=== PATIENT | male | born 1955 | race Caucasian/White ===

== ENCOUNTER 2020-10-31 08:31 | Outpatient (CLI) | payer OTHER, SELFPAY ==
[2020-10-31 09:16] LABS: Alanine Aminotransferase 30 U/L (4-50); Albumin Level 4.1 g/dL (3.5-5.1); Alkaline Phosphatase 142 U/L (38-126); Anion Gap 8 mmol/L (8-16); Aspartate Amino Transferase 31 U/L (17-59); Bilirubin,Total 0.5 mg/dL (0.2-1.3); Blood Urea Nitrogen 12 mg/dL (9-20); Calcium 9.2 mg/dL (8.4-10.2); Carbon Dioxide 24 mmol/L (22-30); Chloride 107 mmol/L (98-107); Cholesterol 123 mg/dL (0-200); Creatine Kinase 82 U/L (55-170); Estimated Glomerular Filt Rate > 60; Glucose 230 mg/dL (75-110); HDL Direct 32 mg/dL; Potassium 4.2 mmol/L (3.4-5.0); Sodium 139 mmol/L (137-145); Triglycerides 103 mg/dL (<150); Uric Acid 4.3 mg/dL (3.5-8.5)
[2020-10-31 09:27] LABS: LDL Cholesterol Direct 72 mg/dL
[2020-10-31 09:48] LABS: Prostate Specific Antigen 0.4 ng/mL (< OR = 4.0); Vitamin D 25 Hydroxy 25.2 ng/mL
[2020-10-31 11:10] LABS: Hepatitis C Virus Antibody Negative (Negative)
== END 2020-10-31 08:32 | disposition home or self-care (01) ==
PROVIDERS: PCP Nurse Practitioner Family; Visit Provider Nurse Practitioner Family
DX: F41.9 Anxiety disorder, unspecified (principal); E11.65 Type 2 diabetes mellitus with hyperglycemia; Z87.891 Personal history of nicotine dependence; Z12.5 Encounter for screening for malignant neoplasm of prostate; Z11.59 Encounter for screening for other viral diseases
CPT/HCPCS: 36415; 80053; 80061; 82306; 82550; 82607; 82746; 84153; 84443; 84550; 86803; G0103

== ENCOUNTER → 2022-04-01 09:00 | Outpatient (CLI) | payer OTHER, SELFPAY ==
--- NOTE | ~2022-04-01 | US_ITS ---
EXAMINATION: US aorta [facility] DATE: 04/01/2022 09:26 INDICATION: Abdominal aortic aneurysm screening TECHNIQUE: Grayscale, color Doppler, and pulsed Doppler images of the aorta and common iliac arteries were obtained. COMPARISON: None. FINDINGS: The proximal aorta measures 2.9 cm. The mid aorta measures 2.3 cm. The distal aorta measures 2.2 cm. The right common iliac artery measures 1.3 cm. The left common iliac artery measures 1.1 cm. IMPRESSION: 1. Normal caliber abdominal aorta. Reviewed, dictated and finalized at location A.
== END ==
PROVIDERS: PCP Nurse Practitioner Family; Visit Provider Nurse Practitioner Family
DX: Z13.6 Encounter for screening for cardiovascular disorders (principal)
CPT/HCPCS: 76706

== ENCOUNTER 2022-04-10 09:47 | Outpatient (CLI) | payer OTHER, SELFPAY ==
--- NOTE | ~2022-04-10 | CT_ITS ---
EXAMINATION: CT lung screening DATE: 04/10/2022 10:08 INDICATION: Former smoker TECHNIQUE: Computed tomography (CT) of the chest was performed without intravenous contrast. The dose -length product was 306.96 mGy-cm. Automated exposure control and iterative reconstruction technique were employed. COMPARISON: None FINDINGS: No thoracic lymphadenopathy. No significant pleural or pericardial effusion. Heart size is normal. Fatty infiltration of the liver. No endobronchial lesions. No pneumothorax. No peripheral con solidation. There is a 4 mm right upper lobe nodule, image 36. No other pulmonary nodules or masses. Moderate thoracic spondylosis. No focal lytic or blastic lesions. IMPRESSION: 1. Lung-RADS category 2: Benign appearance or behavior. Continue annual screening with noncontrast lo w-dose chest CT in 12 months. Reviewed, dictated and finalized at location B. IMPRESSION: 1. Lung-RADS category 2: Benign appearance or behavior. Continue annual screeni ng with noncontrast low-dose chest CT in 12 months.
== END 2022-04-10 09:48 | disposition home or self-care (01) ==
PROVIDERS: PCP Nurse Practitioner Family; Visit Provider Nurse Practitioner Family
DX: F17.211 Nicotine dependence, cigarettes, in remission (principal)
CPT/HCPCS: 71271

== ENCOUNTER 2025-06-11 11:12 | Inpatient (IN) | payer MEDICARE, MEDICAID, SELFPAY ==
--- OUTSIDE RECORDS SUMMARY | 2017-08-19 01:33 | XMS_ITS | Continuity of Care Document ---
Author Organization [facility] Address [address] [place] [address] Phone Care Team Providers Care Grab Jack Man Name Role Phone Peggy OTR/L, Hong ROSALES Unavailable Unava ilable Procedures Procedure Date Long Arm Splint wrist included Advance Directives Directive Yes / No Effective Date File Name No Information Encounters Encounter Description Practice Location Reason(s) For Visit Diagnoses Date Provider Providers Copied on Encounter [facility], [address] [address], [place], [place], [id number], tel:[phone] Marielle Campbell No Information Peggy Pitts. . [facility], [address] [place], [place] [address], [place], [place], [id number], tel:[phone] Marielle Campbell Lesion of ulnar nerve, left upper limb Peggy Pitts. . Referring Provider: David Morales, [address] [place] [address] 6A/6B/12A, [place], [address]. tel:[phone] Family History Family Member Type Diagnosis Age At Onset No Information Payers Payer name Insurance type Covered democrat ID Authoriza tion(s) Self Pay Full Charges 09 00 Social History Type Description Quantity Date Captured Comments Sex Male Smoking Status No Information Chief Complaint And Reason For Visit No Information Reason For Referral Reason For Referral No Information History Of Present Illness Encounter Date Complaint History Of Prese nt Illness No Information Functional Status Date Functional Assessmen t No Information Instructions Date Instruction Additional Infor mation No Information Assessments Type Assessment Date No Information Patient Care Teams Name Effective Dates (start - stop) Status Members No Information
--- OUTSIDE RECORDS SUMMARY | 2025-05-27 18:00 | XMS_ITS | Continuity of Care Document ---
Author Organization [facility] Address [address] [place] [phone] Phone Care Team Providers Care Radiology Ct Technologist Name Role Phone Kolby TEJADA, FACC, ALISHA, Chalo Unavailable U navailable Procedures Procedure Date INITIAL HOSPITAL CARE SUBSEQUENT HOSPITAL CARE SUBSEQUENT HOSPITAL CARE Advance Directives Directive Yes / No Effective Date File Name No Information Encounters Encounter Description Practice Location Reason(s) For Visit Diagnoses Date Provider Providers Copied on Encounter INITIAL HOSPITAL CARE [facility], [address] [place] [address], [id number] , tel: [phone] [facility] Inpt Chest pain, unspecifiedEssential (primary) hypertensionAbnormal levels of other serum enzymes 5 Kolby Isabel. [address] [place] [address], [id number] , . tel: [phone] Referring Provider: Chalo Jarrett, [address] [place], [place] [address], [address] . tel:[phone] SUBSEQUENT HOSPITAL CARE [facility], [address] [place] [address], [id number] , tel: [phone] [facility] Inpt Chest pain, unspecifiedEssential (primary) hypertensionAbnormal levels of other serum enzymes 5 Vazquez Almanza. [address] [place] [address], [id number] , . tel: [phone] Referring Provider: Cami Shukla, [address], [place], [address] . tel:[phone] Family History Family Member Type Diagnosis Age At Onset No Information Payers Payer name Insurance type Covered constitution party ID Authoriza tiliborio(s) HU[employer]NA [id number] [employer] MEDICAID [id number] Social History Type Description Quantity Date Captured [...]
--- OUTSIDE RECORDS SUMMARY | 2025-05-27 18:00 | XMS_ITS | Continuity of Care Document ---
Author Organization [facility] Address [address] [place] [phone] Phone Care Team Providers Care Tint Layer Name Role Phone Kolby TEJADA, FACC, ALISHA, Chalo Unavailable U navailable Procedures Procedure Date INITIAL HOSPITAL CARE SUBSEQUENT HOSPITAL CARE SUBSEQUENT HOSPITAL CARE Advance Directives Directive Yes / No Effective Date File Name No Information Encounters Encounter Description Practice Location Reason(s) For Visit Diagnoses Date Provider Providers Copied on Encounter INITIAL HOSPITAL CARE [facility], [address] [place] [address], [id number] , tel: [phone] [facility] Inpt Chest pain, unspecifiedEssential (primary) hypertensionAbnormal levels of other serum enzymes 5 Kolby Isabel. [address] [place] [address], [id number] , . tel: [phone] Referring Provider: Chalo Jarrett, [address] [place], [place] [address], [address] . tel:[phone] SUBSEQUENT HOSPITAL CARE [facility], [address] [place] [address], [id number] , tel: [phone] [facility] Inpt Chest pain, unspecifiedEssential (primary) hypertensionAbnormal levels of other serum enzymes 5 Vazquez Almanza. [address] [place] [address], [id number] , . tel: [phone] Referring Provider: Cami Shukla, [address], [place], [address] . tel:[phone] Family History Family Member Type Diagnosis Age At Onset No Information Payers Payer name Insurance type Covered green party ID Authoriza tiliborio(s) HUMANA [id number] [employer] MEDICAID [id number] Social History Type Description Quantity Date Captured [...]
[2025-06-11] VITALS (13 sets, daily range): BP systolic 121–154; BP diastolic 55–93; PULSE 59–74; RESP 14–20; TEMP 36.4–36.7; O2SAT 98–100; BMI 32.7
--- NOTE | ~2025-06-11 | XR_ITS ---
Examination: XR chest 2V Clinical History: cp Comparison: None Technique: PA and Lateral Findings: Cardiomediastinal silhouette normal size and configuration. Lungs clear. No acute bony abnormality. IMPRESSION: 1. No acute cardiopulmonary findings. Reviewed, dictated and finalized at location R. ATIENT PSYCHIATRIST
--- NOTE | 2025-06-11 11:14 | ECG_ITS ---
Test Date: 2025-06-11 11:26:30 Measurements Intervals [place] Rate: 66 P: 62 ID: [id number] QRS: -1 QRSD: 109 T: 28 QT: 389 QTc: 410 Interpretive Statements SINUS RHYTHM INCOMPLETE RIGHT BUNDLE BRANCH BLOCK BASELINE ARTIFACT- I, II, III, AVR, AVL BORDERLINE ECG No previous ECG available for comparison Electronically Signed On 06-11-2025 21:33:45 FLYING SHEAR OPERATOR by Shaun Willard D.O.
--- OUTSIDE RECORDS SUMMARY | 2025-06-11 11:14 | XMS_ITS | Clinical Summary ---
Author Organization [facility] Address [address] [place] [address] Care Team Providers Care Mule Developer Name Role Phone Lashaun Herron TIFFANIE Primary Care Provider [phone] Allergies No known active allergies Medications albuterol (2.5 MG/3ML) 0.083% nebulizer solution Inhale into the lungs 2 (two) times daily. Active albuterol sulfate HFA (PROAIR HFA) 108 (90 Base) MCG/ACT inhalerIndications :Simple chronic bronchitis ([facility] HHS/HCC) Inhale 2 puffs into the lungs every 4 (four) hours as needed for Wheezing. 18 g 10/31/19 Active aspirin EC (ASPIRIN 81) 81 MG tabletIndications: Essential hypertension Take 1 tablet (81 mg total) by mouth daily. 30 tablet 10/31/19 Active Lancets MiscIndications:Un controlled type 2 diabetes mellitus with hyperglycemia ([facility] HHS/HCC) Use for checking blood sugar 100 each 12/01/19 Active metFORMIN 1000 MG tabletIndications: Type 2 diabetes mellitus without complication, without long-term current use of insulin ([facility] HHS/HCC) Take 1 tablet (1,000 mg total) by mouth 2 (two) times daily with meals. 60 tablet 01/04/20 Active Blood Glucose Monitoring Suppl (ONE TOUCH ULTRA 2) w/Device KitIndications:Unc ontrolled type 2 diabetes mellitus with hyperglycemia ([facility] HHS/HCC) Check blood sugars a couple times a week, as directed 1 kit 01/04/20 Active Glucose Blood (ONETOUCH VERIO) test stripIndications:U ncontrolled type 2 diabetes mellitus with hyperglycemia ([facility] HHS/[facility]) Use to test blood glucose daily for diabetes 100 strip 5 12/25/19 22 Active simvastatin (ZOCOR) 20 MG tabletIndications: Hyperlipidemia, unspecified hyperlipidemia type TAKE 1 TABLET BY MOUTH EVERY DAY 90 tablet 10/11/19 23 Active Additional Information Patient not taking.Reported on 01/10/2025 Insulin Pen Needle (BD PEN NEEDLE MICRO U/F) 32G X 6 MM MiscIndications:Un controlled type 2 diabetes mellitus with hyperglycemia ([facility] H[facility]),Class 2 severe obesity due to excess calories with serious comorbidity and body mass index (BMI) of 35.0 to 35.9 in adult Use weekly with ozempic 100 each 1 04/08/20 23 Active vitamin D3, cholecalciferol, 1.25 mg capsuleIndications :Vitamin D deficiency Take 1 capsule (50,000 Units total) by mouth once a week. 12 capsule 3 04/08/20 23 Active budesonide-formote rol (SYMBICORT) 80-4.5 MCG/ACT inhaler Inhale 2 puffs into the lungs 2 (two) times daily. Active tirzepatide (MOUNJARO) 7.5 MG/0.5ML injectionIndicatio ns:Diabetes Mellitus Inject 7.5 mg into the skin every 7 days. Indications: Diabetes 6 mL 01/11/20 25 Active cyclobenzaprine (FLEXERIL) 10 MG tabletIndications: Muscle spasm TAKE 1 TABLET BY MOUTH TWICE A DAY NEEDED FOR MUSCLE SPASMS 60 tablet 03/24/20 25 Active ALPRAZolam (XANAX) 2 MG tabletIndications: Anxiety Take 1 tablet (2 mg total) by mouth nightly as needed (anxiety). 30 tablet 2 04/05/20 25 Active lisinopril (PRINIVIL) 20 MG tabletIndications: Primary hypertension TAKE 1 TABLET BY MOUTH EVERY DAY 30 tablet 11 04/05/20 25 Active HYDROcodone-acetam inophen (NORCO) 7.5-325 MG tabletIndications: Chronic Pain Take 1 tablet by mouth every 6 (six) hours as needed for Pain. Indications: Chronic Pain 120 tablet 06/05/20 25 Active HYDROcodone-acetam inophen (NORCO) 7.5-325 MG tabletIndications: Chronic Pain Take 1 tablet by mouth every 6 (six) hours as needed for Pain. Indications: Chronic Pain 120 tablet 05/09/20 25 025 Discontin ued(Reord er) Active Problems Problem Noted Date Diagnosed Date Non-compliance with treatment 11/26/2024 H/O cervical discectomy 08/26/2023 Numbness and tingling 08/26/2023 Nicotine dependence, cigarettes, in remission Left lower quadrant abdominal mass 04/08/2023 Muscle spasm 03/07/2023 Polyarthralgia 03/07/2023 Class 2 severe obesity due t o excess calories with serious comorbidity and body mass index (BMI) of 36.0 to 36.9 in adult 07/19/2022 Fatty liver disease, nonalcoholic 11/01/2020 Primary hypertension 11/01/2020 Hyperlipidemia, unspecified hyperlipidemia type 11/01/2020 Vitamin D deficiency 11/01/2020 Uncontrolled type 2 diabetes mellitus with hyper glycemia 11/01/2020 Personal history of nicotine dependence 11/02/19 21 Brachial neuritis 10/30/2020 Localized, primary osteoarthritis 10/30/2020 Cervical myelopathy 11/06/2018 Overview (10/30/2020): Last Assessment & Plan: Condition: worsening Follow up in: two weeks Pain 11/06/2018 Overview (10/30/2020): Last Assessment & Plan: Condition: stable Follow up in: one month Carpal tunnel syndrome 07/22/2017 Cubital tunnel syndrome 05/28/2017 Anxiety 08/14/2016 Renal cyst, right 06/06/2015 Allergic rhinitis 04/12/2015 Type 2 diabetes mellitus 07/04/2014 Arthritis 06/29/2014 Chronic obstructive pulmonary disease, unspecifi ed 06/29/2014 Resolved Problems Problem Noted Date Diagnosed Date Resolved Date Colon cancer screening 11/01/202011/06 Current tear of medial carti griffin or meniscus of knee 10/30/2020 11/01/2020 Osteoarthritis of knee 10/30/202011/01 ADHD (attention deficit hype ractivity disorder), combined type 04/12/2015 11/01/2020 Encounters Date Type Department Care Team Description 06/03/[address] [phone] Lashaun Herron, [facility] Medication Request 05/27/2025 Scan [facility] Scanned, [facility] 05/09/[address] [phone] Lashaun Herron, [facility] Medication Request 04/27/2025 Scan [facility] Scanned, [facility] 04/24/2025 Scan [facility] Scanned, [facility] 04/07/[address] [phone] Lashaun Herron, [facility] Medication Request 04/05/[address] [phone] Lashaun Herron, [facility] Medication Request 04/04/2025 Patient Outreach [address] [phone] Maria Isabel, Alton Shaw MA Other ([employer]) 03/15/2025 Scan [facility] Scanned, [facility] from Last 3 Months Immunizations Immunization Administration Dates Next Due Fluzone High Dose (IIV, trivalent, 0.5mL) 2024,05/07/2024 Fluzone High Dose - >Age 65 (Prefilled Syringe) 04/08/2023 PFIZER COVID-19 (12+) MRNA, LNP-S, PF, JESSICA-SUCROSE, 30 MCG/0.3 ML (COMIRNATY) 08/13/2024,05/07/2024 Pneumococcal (Prevnar 20) 03/15/2022 Shingrix 12/15/2020 Tdap (Adacel) 07/19/2022 Family History Medical History Relation Comments None Daughter Arthritis Father Cancer Father abdominal cancer Arthritis Mother Cancer Mother breast Arthritis Sister 1 Arthritis Sister 2 Relation Status Comments Daughter Alive Father Mother Sister 1 Alive Sister 2 Alive Social History Tobacco Use Types Packs/Day Years Used Date Smoking Tobacco: Former Cigarettes 1.5 50 0 10/30/1966 - 10/30/2016 Smokeless Tobacco: Never Tobacco Cessation:Counseling Given: Yes Alcohol Use Standard Drinks/Week Comments Not Currently 0 (1 standard drink = 0.6 oz pur e alcohol) PHQ-2 Answer Date Recorded Patient Health Questionnaire-2 Score 0 11/26/2024 Sex and Gender Information Value Date Recorded Sex Assigned at Male 09/24/2024 10:28 AM CDT Legal Sex Male 10:56 PM CDT Gender Identity Male 09/24/2024 10:28 AM CDT Sexual Orientation Not on file Last Filed Vital Signs Vital Sign Reading Time Taken Comments Blood Pressure 118/64 01/10/2025 8:34 AM CDT Pulse 81 01/10/2025 8:34 AM CDT Temperature 36.5 C (97.7 F) 01/10/2025 8:34 AM CDT Respiratory Rate 16 01/10/2025 8:34 AM CDT Oxygen Saturation 97% 01/10/2025 8:34 AM CDT Inhaled Oxygen Concentration - - Weight 124.7 kg (274 lb 14.4 oz) 01/10/2025 8:34 AM CDT Height 185.4 cm (6' 1) 01/10/2025 8:34 AM CDT Body Mass Index 36.27 01/10/2025 8:34 AM CDT Plan of Treatment Health Maintenance Due Date Last Done Comments Diabetes: Retinopathy Eye Exam 1975 Hepatitis A Vaccines (1 of 2 - Risk 2-dose series) 01/24/1976 AAA SCREENING 2022 COVID-19 Vaccine ( season) 2025 08/13/2024, 05/07/2024 Influenza Adult (#1) 2025 08/13/2024, 05/07/2024, 04/08/2023 Hemoglobin A1C 07/13/2025 01/10/2025, 11/14, 10/26/2024, Additional history exists Lung Cancer Screening 09/24/2025 Postpo page from 2007 (Patient Refused) RSV Immunization or 60+ Years (1 - Risk 60-74 years 1-dose series) 09/24/2025 Postponed fro m 2017 (Going to Outside Clinic) Annual Medicare Wellness Visit 10/26/2025 Postponed from 2022 (Patient Refused) Colorectal Cancer Screening Colonoscopy (10 Years) 10/26/2025 Postponed from 1957 (Patient Refused) Zoster Vaccines (2 of 2) 10/26/2025 12/15/2020 Pos tponed from 02/09/2021 (Going to Outside Clinic) Kidney Health Evaluation 01/10/2026 01/10/2025 Lipid Panel 01/10/2026 01/10/2025, 04/17, 04/01/2023, Additional history exists DTaP, Tdap and Td Vaccines (2 - Td or Tdap) 07/19/2032 07/19/2022 Pneumococcal Vaccine: 50+ Years Completed 03/15/2022 Hepatitis C Completed 05/07/2024, 08/31/2018 PHQ-2 (Physician [place]) Completed 11/26/2024 Meningococcal B Vaccine Aged Out No l onger eligible based on patient's age to complete this topic Meningococcal Vaccine Aged Out No douglas nesha eligible based on patient's age to complete this topic RSV Immunizations Under 20 Months Aged Out No longer eligible based on patient's age to complete this topic Procedures Procedure Name Priority Date/Time Associated Diagnosis Comments LIPID PANEL Routine 01/10/2025 10:56 AM CDT Uncontrolled type 2 diabetes mellitus with hyperglycemia ([facility]) Hyperlipidemia, unspecified hyperlipidemia type HEMOGLOBIN GLYCOSYLATED A1C Routine 01/10/2025 10:56 AM CDT Uncontrolled type 2 diabetes mellitus with hyperglycemia ([facility] HHS/HCC) Anxiety HEPATITIS C ANTIBODY Routine 05/07/2024 11:42 AM MEDIA ASSISTANT Encounter for hepatitis C screening test for low risk patient COLONOSCOPY Routine MEDIA ASSISTANT from Last 3 Months or Most Recently Relevant to Health Maintenance Results * (ABNORMAL) HEMOGLOBIN, GLYCOSYLATED (01/10/2025 10:56 AM CDT) HGB A1C 8.2(H) 4.5 - 6.2 % 01/10/2025 3:28 PM CDT [facility] ESTIMATED AVG GLUCOSE 189(H) 74 - 106 MG/DL 01/10/2025 3:28 PM CDT [facility] 01/10/2025 10:5 6 AM CDT us Lashaun Herron [facility] Final Result [facility] [address] [place] [address], * (ABNORMAL) LIPID PANEL (01/10/2025 10:56 AM CDT) CHOLESTEROL 139 <200 MG/DL 01/10/2025 4:05 PM CDT [facility] TRIGLYCERIDES 106 <150 MG/DL 01/10/2025 4:05 PM CDT [facility] HDL 36(L) >40 MG/DL 01/10/2025 4:05 PM CDT [facility] LDL-C 82 <100 MG/DL 01/10/2025 4:05 PM CDT [facility] VLDL CALCULATION 21 5 - 28 MG/DL 01/10/2025 4:05 PM CDT [facility] CHOL/HDL RATIO 3.9 0.0 - 4.0 01/10/2025 4:05 PM T [facility] LDL/HDL 2.3(H) 0.41 - 2.13 01/10/2025 4:05 PM CDT [facility] NON HDL CHOLESTEROL 103 <140 MG/DL 01/10/2025 4:05 PM CDT [facility] 01/10/2025 10:5 6 AM CDT Lashaun Herron [facility] Final Result Performing Organization Address City/[facility] de Phone Number -[facility] [address] [place] [address], [place] [phone] * HEPATITIS C ANTIBODY ([facility] ONLY) (05/07/2024 11:42 AM MEDIA ASSISTANT) HEPATITIS C AB NON-REACTI VE NON-REACT ATIF 05/07/2024 6:30 PM MEDIA ASSISTANT [facility] Comment: ANTIBODIES TO HCV NOT DETECTED. DOES NOT EXCLUDE THE POSSIBILITY OF EXPOSURE TO HCV. 05/07/2024 11:4 2 AM MEDIA ASSISTANT Lashaun Herron [facility] Final Result Performing Organization Address [facility] de Phone Number [facility] [address] [place] [address], [place] [phone] * Colonoscopy ( MEDIA ASSISTANT) Narrative [facility] TO EPIC CONVERSION - MEDIA ASSISTANT Documented hx of procedure Procedure Note Cesar Tejada MD - 04/19/2018 Documented hx of procedure us Generic Conversion Md TEJADA GI PROCEDURE ORDERABLES Final Result Performing Organization Address City/[facility] Co de Phone Number [facility] TO EPIC CONVERSION from Last 3 Months or Most Recently Relevant to Health Maintenance Insurance MEDICARE MEDICAID Care Teams Mule Developer Relationship Specialty Start Date End Date Lashaun Herron FNP [address] [place] [id number] PCP - General Nurse Practitioner Family 10/30/20
--- OUTSIDE RECORDS SUMMARY | 2025-06-11 11:14 | XMS_ITS | Clinical Summary ---
Author Organization [facility] Address [address] [place] [address] Care Team Providers Care Polisher Hand Name Role Phone Yovanny Acevedo DO Primary Care Provider [phone] Source Comments [facility],non-owned Affiliates and Associated Physician Practices is amultiple site organization consisting of ambulatory clinics and hospital sitesin [place], [place], [place]. This disclosure is being madepursuant to the Care Everywhere program and may not contain all information available regarding this patient. Last updated 18.[facility] Allergies No known active allergies Medications * Be aware that medications may not be up to date on this document. Alwaysverify current medications with the patient. VENTOLIN HFA 108 (90 BASE) MCG/ACT inhaler Inhale 2 puffs by mouth every 4 hours as needed 07/07/2018 Active Naproxen Sodium (ALEVE PO) Take by mouth 2 times daily Active cyclobenzaprine (FLEXERIL) 10 MG tablet Take 1 tablet by mouth 3 times daily 93 tablet 11/19/2018 Active Active Problems Problem Noted Date Diagnosed Date Pre-op testing 11/19/2018 Family History Medical History Relation Name Comments Arthritis - Rheumatoid Mother Relation Name Status Comments Father Mother Alive Social History Tobacco Use Types Packs/Day Years Used Date Smoking Tobacco: Former Cigarettes 1 52 1 966 - 2018 Smokeless Tobacco: Never Tobacco Cessation:Counseling Given: No Alcohol Use Standard Drinks/Week Comments No 0 (1 standard drink = 0.6 oz pur e alcohol) Sex and Gender Information Value Date Recorded Sex Assigned at Not on file 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 Gender Identity Not on file Sexual Orientation Not on file Last Filed Vital Signs Vital Sign Reading Time Taken Comments Blood Pressure 154/85 03/04/2019 3:49 PM CDT Pulse 78 03/04/2019 3:49 PM CDT Temperature 36.4 C (97.6 F) 12/10/2018 2:41 PM CDT Respiratory Rate 19 11/19/2018 1:00 PM CDT Oxygen Saturation 98% 11/19/2018 1:00 PM CDT Inhaled Oxygen Concentration - - Weight 119.7 kg (264 lb) 03/04/2019 3:49 PM CDT Height 185.4 cm (6' 1) 03/04/2019 3:49 PM CDT Body Mass Index 34.83 03/04/2019 3:49 PM CDT Plan of Treatment Health Maintenance Due Date Last Done Comments COLOGUARD (AGES 45-75) - COL ON CA SCREENING 1957 COLON MONITORING 1957 COLONOSCOPY - COLON CA SCREENING 1957 CT COLONOGRAPHY - COLON CA SCREENING 1957 Colorectal Cancer Screening 1957 FIT - COLON CA SCREENING 1957 FLEX SIG - COLON CA SCREENING 1957 LIPID TESTING 1957 DTAP/TDAP/TD VACCINES (1 - Tdap) 01/24/1976 LUNG CANCER SCREENING 2007 PNEUMOCOCCAL VACCINE 50+ (1 of 1 - PCV) 2007 ZOSTER VACCINE (1 of 2) 2007 SCREENING FOR DIABETES 11/06/2021 9, 08/31/2018 AAA SCREENING 2022 DEPRESSION SCREENING 06/16/2024 COVID-19 VACCINE (1 - 2024-2 6 season) 2025 INFLUENZA VACCINE (#1) 2025 Respiratory Syncytial Virus (RSV) Vaccine Pt: or over 60 yrs (1 - 1-dose 75+ series) 01/24/2032 HEPATITIS C SCREENING Completed 08/31/2018 HEPATITIS B VACCINE Aged Out No longe r eligible based on patient's age to complete this topic HIB VACCINE Aged Out No longer eligi ble based on patient's age to complete this topic HPV VACCINE Aged Out No longer eligi ble based on patient's age to complete this topic MENINGOCOCCAL (Group B) VACCINE SHARED DECISION-MAKING Aged Out No longer eligible based on patient's age to complete this topic MENINGOCOCCAL GROUPS A/C/Y/W VACCINE Aged Out No longer eligible b ased on patient's age to complete this topic Medical Devices Implanted Type Area Finger Grip Machine Operator Device Identifier Shelf Expiration Date Model / Serial / Lot Tiss Jennifer Srvc Fee 7.0 X 14mm X 11mm Implanted:Qty: 1 on 11/19/2018 by Damion Armendariz MD at [facility] Right: Spine Medtr[employer] Sof[employer]or [employer] 08/18/2021 [id number] / / Plate 23mm 1 Lvl Ti Spne Crv Ant Zevo Implanted:Qty: 1 on 11/19/2018 by Damion Armendariz MD at [facility] Right: Spine Medtronic Sofamor [employer] Spine [id number] / / Screw 3.5mm 15mm Spne Crv Ant Shahid Slf Implanted:Qty: 4 on 11/19/2018 by Damion Armendariz MD at [facility] Right: Spine [employer]tr[employer] [id number] / / Procedures Procedure Name Priority Date/Time Associated Diagnosis Comments BASIC METABOLIC PANEL (CALCIUM TOTAL) Routine 11/06/2018 11:14 AM CDT Pre-op testing HEPATITIS C AB SCREEN RFLX NAAT QUANT STAT 08/31/2018 5:05 PM CDT from Last 3 Months or Most Recently Relevant to Health Maintenance Results * (ABNORMAL) BASIC METABOLIC PANEL (CALCIUM TOTAL) (11/06/2018 11:14 AM CDT) BUN 16 7 - 26 mg/dL 11/06/2018 11:49 AM CDT [facility] Creatinine 1.0 0.6 - 1.2 mg/dL 11/06/2018 11:49 AM CDT [facility] Sodium 139 136 - 145 mmol/L 11/06/2018 11:49 AM CDT [facility] Potassium 4.0 3.5 - 4.5 mmol/L 11/06/2018 11:49 AM CDT [facility] Chloride 105 98 - 107 mmol/L 11/06/2018 11:49 AM [facility] CO2 24 22 - 29 mmol/L 11/06/2018 11:49 AM [facility] Glucose 121(H) 70 - 115 mg/dL 11/06/2018 11:49 AM [facility] Calcium 10.0 8.4 - 10.2 mg/dL 11/06/2018 11:49 AM [facility] Anion Gap 14 8 - 18 11/06/2018 11:49 AM [facility] BUN/Creatinine Ratio 16 7 - 23 11/06/2018 11:49 AM [facility] Osmolality Calculated 290 270 - 300 mOsm/kg 11/06/2018 11:49 AM [facility] eGFR >60 >60 mL/min/1.7 3 m2 11/06/2018 11:49 AM [facility] Blood BLOOD SPECIMEN / Unknown Lab Venipuncture / Unknown 11/06/2018 11:14 AM CDT 11/06/2018 11:28 AM CDT us Felicia Fonseca MD LAB - CHEMISTRY ORDERABLES Sonia l Result [address] [phone] * HEPATITIS C AB SCREEN RFLX NAAT QUANT (08/31/2018 5:05 PM CDT) Hepatitis C Antibody Non-react raúl Non-reac tive 08/31/2018 6:33 PM [facility] Comment: Hepatitis C Antibody screen indicates no serologic evidence of past or current infection with Hepatitis C Virus. Patients with unexplained liver disease who are immunocompromised or suspected of having acute Hepatitis C infection may benefit from Nucleic Acid Test (JOEL) for Hepatitis C Viral RNA to confirm Hepatitis C status. Blood BLOOD SPECIMEN / Unknown Venipuncture / Unknown 08/31/2018 5:05 PM CDT 08/31/2018 5:21 PM CDT Walker Sands MD LAB - CHEMISTRY ORDERABL ES Final Result [address] [place] [address], [facility] [phone] from Last 3 Months or Most Recently Relevant to Health Maintenance Insurance [facility] Care Teams Polisher Hand Relationship Specialty Start Date End Date Yovanny Acevedo DO PCP - General 10/22/18
[2025-06-11] MEDS: ASPIRIN 81 MG CHEWABLE TABLET 324 MG PO (11:51)
--- NOTE | 2025-06-11 11:53 | ED_ITS ---
HPI - Chest Pain General Chief Complaint: Chest Pain Stated Complaint: cp Time Seen by Provider: 06/11/25 11:52 Source: patient Mode of arrival: ambulatory Limitations: no limitations History of Present Illness HPI narrative: 70 years old white male driving his car, sudden onset of left chest pain radiating left upper extremity, 9.5/10 and gradually started getting better, currently 7/10. History of knee arthritis and anxiety/depression. Patient believe in a motel for the last 7 days with his significant other, can not afford renting. Patient denies smoking drinking or using drugs, strong family history of coronary artery disease, his father had it at at age 67. Patient had similar symptoms 3 weeks ago was hospitalized at [facility], operated by [facility] for 3 days, was not able to get cardiac stress test yet. Related Data Home Medications ?Medication ?Instructions ?Recorded ?Confirmed ?Last Taken ?Type albuterol sulfate 90 mcg/actuation 2 puff inhalation Q 4-6H PRN 07/28/19 06/11/25 Unknown History aerosol inhaler (Ventolin HFA) shortness of breath or wheezing alprazolam 2 mg tablet 2 mg PO HS PRN anxiety 06/1106/11/25 06/09/25 History hydrocodone 7.5 mg-acetaminophen 1 tablet PO Q6H PRN p ain 06/11/25 06/11/25 06/09/25 History 325 mg tablet Allergies Allergy/AdvReac Type Severity Reaction Status Date / Time No Known Allergies Allergy Verified 06/11/25 14:15 Review of Systems 2 Review of Systems: All systems reviewed & are unremarkable except as noted in HPI and below PMFSH Past Medical History Medical History COPD (chronic obstructive pulmonary disease) HTN (hypertension) Surgical History Surgical History History of surgery on upper extremity History of carpal tunnel release History of knee surgery left History of shoulder surgery right History of fusion of cervical spine Family History Family History (Updated 06/11/25 @ 14:24 by Honey Whatley RN) Sibling Diabetes mellitus Hypertension Father Cancer of unknown origin Acute myocardial infarction Hypertension Mother Heart disease Hypertension Acute myocardial infarction Asthma Cancer of unknown origin Sibling Hypertension Diabetes mellitus Sibling Hypertension Social History Social History Smoking packs per day: 1.5 Smoking cigarettes per day: 30.0 Years smoked: 50 Smoking pack-years: 75.00 Smoking status: Former smoker Second hand tobacco smoke exposure: Yes Smoking end date: 06/16/17 Additional smoking assessment comments: quit in 2014 Alcohol intake: never Substance use: never Substance use type: does not use Lack of Transportation: No Lack of Food: Sometimes True Current Housing: I Do Not Have Housing Concerned About Future Housing: YES Difficulty Paying Gas/Electric Bills: YES Difficulty Paying for Meds: No Currently Unemployed: No Education: Associate Degree Difficulty w/ Childcare or Family Care: No Spiritual care concerns: No Exam 2 Narrative: General appearance: Well-developed, well-nourished Skin: Normal color Head: Normocephalic, nontraumatic Eyes: Clear conjunctiva ENT: Oropharynx normal, ears normal, nose normal Neck: Supple, nontender Chest and respiratory: Airway patent, no respiratory distress, no accessory muscle use Heart: Regular rate/rhythm Abdomen: Soft, nontender, no organomegaly, quiet bowel sounds Vascular: Normal peripheral pulses, normal capillary refill. Musculoskeletal: Normal range of motion, nontender back Neurologic: Alert and oriented ?3, SURVEILLANCE MONITOR is normal as tested, no gross motor deficit Course Vital Signs Vital signs: Vital Signs Temperature 36.6 C 06/11/25 11:35 Pulse Rate 69 06/11/25 11:35 Respiratory Rate 20 06/11/25 11:35 Blood Pressure 154/93 H 06/11/25 11:35 Pulse Oximetry 99 06/11/25 11:35 Temperature 36.3 C L 06/13/25 08:00 Pulse Rate 72 06/13/25 08:00 Respiratory Rate 12 06/13/25 08:00 Blood Pressure 155/94 H 06/13/25 08:00 Pulse Oximetry 100 06/13/25 08:00 Oxygen Delivery Room Air 06/13/25 04:00 [facility] Narrative Medical decision making narrative: Patient came to the ED by private car complaining of chest pain Vital signs are stable Physical examination unremarkable Differential diagnosis include coronary artery disease, chest wall pain, anxiety like symptoms, pneumonia, pleural effusion, pleurisy Blood workup today includes CBC, CMP, lipase, troponin, BnP showed insignificant abnormality Chest x-ray showed no acute abnormality Differential Diagnosis Differential Diagnosis: Anxiety like symptoms, pneumonia, chest wall pain, pleurisy, pleural effusion, less likely coronary artery disease Lab Data 06/12/25 03:39 06/12/25 03:39 Labs: Lab Results 06/11/25 Range/Units 11:58 WBC 6.8 (4.5-10.0) K/mm3 RBC 4.62 (4.6-6.20) M/mm3 Hgb 14.2 (14.0-18.0) g/dL Hct 41.6 L (42.0-52.0) % MCV 90.0 (80-100) fl MCH 30.7 (26-34) pg MCHC 34.1 (32-36) g/dl RDW 13.2 (11.5-14.5) % Plt Count 170 (150-375) k/mm3 MPV 9.1 (7.4-10.4) fl Immature Gran % (Auto) 0.3 (0-0.5) % Neut % (Auto) 62.7 (45.5-73.1) % Lymph % (Auto) 25.3 (18.3-44.2) % Campbell % (Auto) 8.5 (2.6-8.5) % Eos % (Auto) 2.5 (0-4.4) % Baso % (Auto) 0.7 (0.2-1.2) % Lymph # (Auto) 1.73 (0.9-3.2) K/mm3 Campbell # (Auto) 0.6 (0.1-0.6) K/mm3 Eos # (Auto) 0.2 (0-0.3) K/mm3 Baso # (Auto) 0.1 (0.0-0.1) K/mm3 Abs Immat Gran (auto) 0.02 (0.00-0.031) K/mm3 Absolute Neuts (auto) 4.3 (1.3-6.7) K/mm3 Absolute Nucleated RBC 0.000 (0.0-0.012) K/mm3 Nucleated RBC % 0.0 (0.0-0.2) % PT 13.1 (11.1-14.7) Seconds INR 1.0 APTT 26.5 (22.3-36.8) Seconds Sodium 139 (137-145) mmol/L Potassium 4.2 (3.4-5.0) mmol/L Chloride 110 H (98-107) mmol/L Carbon Dioxide 25 (22-30) mmol/L Anion Gap 4 (4-12) mmol/L BUN 12 (9-20) mg/dL Creatinine 0.73 (0.7-1.3) mg/dL Estim Creat Clear Calc 111 ml/min Estimated GFR > 60 (59 - ) Glucose 196 H (65-110) mg/dL Calcium 9.0 (8.4-10.2) mg/dL Total Bilirubin 0.5 (0.2-1.3) mg/dL AST 25 (17-59) U/L ALT 21 (6-50) U/L Alkaline Phosphatase 179 H (38-126) U/L Troponin I < 0.012 (0.000-0.034) ng/mL NT-Pro-B Natriuret Pep 55 (19.9-100) pg/mL Total Protein 7.0 (6.3-8.2) g/dL Albumin 4.1 (3.5-5.1) g/dL Lipase 84 (23-300) U/L Imaging Data Radiologist's impression: ITS Impressions Chest X-Ray 06/11/25 12:49 IMPRESSION: 1. No acute cardiopulmonary findings. Discharge Plan Discharge Clinical Impression: Chest pain, Anxiety-like symptoms Patient Disposition: Still a Patient Condition: Stable
[2025-06-11 12:06] LABS: Hematocrit 41.6 % (42.0-52.0); Hemoglobin 14.2 g/dL (14.0-18.0); Immature Granulocyte Percent A 0.3 % (0-0.5); Lymphocytes Absolute Auto 1.73 K/mm3 (0.9-3.2); Mean Corpuscular HGB Conc 34.1 g/dl (32-36); Mean Corpuscular Hemoglobin 30.7 pg (26-34); Mean Corpuscular Volume 90.0 fl (80-100); Nucleated Red Blood Cells Absolute Auto 0.000 K/mm3 (0.0-0.012); Nucleated Red Blood Cells Perc 0.0 % (0.0-0.2); Platelet Count Result 170 k/mm3 (150-375); Red Blood Count 4.62 M/mm3 (4.6-6.20); White Blood Count 6.8 K/mm3 (4.5-10.0)
--- OUTSIDE RECORDS SUMMARY | 2025-06-11 12:07 | XMS_ITS | Clinical Summary ---
Author Organization [facility] Address [address] [place] [address] Care Team Providers Care Pizza Maker Name Role Phone Lashaun Herron TIFFANIE Primary Care Provider [phone] Allergies No known active allergies Medications albuterol (2.5 MG/3ML) 0.083% nebulizer solution Inhale into the lungs 2 (two) times daily. Active albuterol sulfate HFA (PROAIR HFA) 108 (90 Base) MCG/ACT inhalerIndications :Simple chronic bronchitis ([facility] HHS/HCC) Inhale 2 puffs into the lungs every 4 (four) hours as needed for Wheezing. 18 g 10/31/19 Active aspirin EC (ASPIRIN 81) 81 MG tabletIndications: Essential hypertension Take 1 tablet (81 mg total) by mouth daily. 30 tablet 10/31/19 Active Lancets MiscIndications:Un controlled type 2 diabetes mellitus with hyperglycemia ([facility] HHS/HCC) Use for checking blood sugar 100 each 12/01/19 Active metFORMIN 1000 MG tabletIndications: Type 2 diabetes mellitus without complication, without long-term current use of insulin ([facility] HHS/HCC) Take 1 tablet (1,000 mg total) by mouth 2 (two) times daily with meals. 60 tablet 01/04/20 Active Blood Glucose Monitoring Suppl (ONE TOUCH ULTRA 2) w/Device KitIndications:Unc ontrolled type 2 diabetes mellitus with hyperglycemia ([facility] HHS/HCC) Check blood sugars a couple times a week, as directed 1 kit 01/04/20 Active Glucose Blood (ONETOUCH VERIO) test stripIndications:U ncontrolled type 2 diabetes mellitus with hyperglycemia ([facility] HHS/[facility]) Use to test blood glucose daily for diabetes 100 strip 5 12/25/19 22 Active simvastatin (ZOCOR) 20 MG tabletIndications: Hyperlipidemia, unspecified hyperlipidemia type TAKE 1 TABLET BY MOUTH EVERY DAY 90 tablet 10/11/19 23 Active Additional Information Patient not taking.Reported on 01/10/2025 Insulin Pen Needle (BD PEN NEEDLE MICRO U/F) 32G X 6 MM MiscIndications:Un controlled type 2 diabetes mellitus with hyperglycemia ([facility] HHS/[facility]),Class 2 severe obesity due to excess [...] Type Department Care Team Description 06/03/[address] [phone] Lashaun Herron, [facility]OCUS P[facility]ER Medication Request 05/27/2025 Scan [facility] SRVCS Scanned, [facility] 05/09/[address] [phone] Lashaun Herron, FOCUS PULLER Medication Request 04/27/2025 Scan [facility] INFO SRVCS Scanned, [facility] 04/24/2025 Scan [facility] SRVCS Scanned, Doc [facility] 04/07/[address] [phone] Lashaun Herron, FOCUS PULLER Medication Request 04/05/[address] [phone] Lashaun Herron, FOCUS PULLER Medication Request 04/04/2025 Patient Outreach [address] [phone] Maria Isabel, Alton Shaw MA [...] Hepatitis C Completed 05/07/2024, 08/31/2018 PHQ-2 (Physician Exline) Completed 11/26/2024 Meningococcal B Vaccine Aged Out [...] Uncontrolled type 2 diabetes mellitus with hyperglycemia ([facility]) Hyperlipidemia, unspecified hyperlipidemia type HEMOGLOBIN GLYCOSYLATED A1C Routine 01/10/2025 10:56 AM CDT Uncontrolled type 2 diabetes mellitus with hyperglycemia ([facility] HHS/HCC) Anxiety HEPATITIS C ANTIBODY Routine 05/07/2024 11:42 AM APPLICATION TRAINER Encounter for hepatitis C screening test for low risk patient COLONOSCOPY Routine APPLICATION TRAINER from Last 3 Months or Most Recently Relevant to Health Maintenance Results * (ABNORMAL) HEMOGLOBIN, GLYCOSYLATED (01/10/2025 10:56 AM CDT) HGB A1C 8.2(H) 4.5 - 6.2 % 01/10/2025 3:28 PM CDT [facility] ESTIMATED AVG GLUCOSE 189(H) 74 - 106 MG/DL 01/10/2025 3:28 PM CDT [facility] 01/10/2025 10:5 6 AM CDT us Lashaun Herron [facility] Final Result [facility] [address] [place] [address], * (ABNORMAL) LIPID PANEL (01/10/2025 10:56 AM CDT) CHOLESTEROL 139 <200 MG/DL 01/10/2025 4:05 PM CDT [facility] TRIGLYCERIDES 106 <150 MG/DL 01/10/2025 4:05 PM CDT [facility] HDL 36(L) >40 MG/DL 01/10/2025 4:05 PM CDT [facility] LDL-C 82 <100 MG/DL 01/10/2025 4:05 PM CDT [facility] VLDL CALCULATION 21 5 - 28 MG/DL 01/10/2025 4:05 PM CDT [facility] CHOL/HDL RATIO 3.9 0.0 - 4.0 01/10/2025 4:05 PM T [facility] LDL/HDL 2.3(H) 0.41 - 2.13 01/10/2025 4:05 PM CDT [facility] NON HDL CHOLESTEROL 103 <140 MG/DL 01/10/2025 4:05 PM CDT [facility] 01/10/2025 10:5 6 AM CDT Lashaun Herron [facility] Final Result Performing Organization Address City/[facility] de Phone Number -[facility] [address] [place] [address], [place] [phone] * HEPATITIS C ANTIBODY ([facility] ONLY) (05/07/2024 11:42 AM APPLICATION TRAINER) HEPATITIS C AB NON-REACTI VE NON-REACT ATIF 05/07/2024 6:30 PM APPLICATION TRAINER [facility] Comment: ANTIBODIES TO HCV NOT DETECTED. DOES NOT EXCLUDE THE POSSIBILITY OF EXPOSURE TO HCV. 05/07/2024 11:4 2 AM APPLICATION TRAINER Lashaun Herron [facility] Final Result Performing Organization Address [facility] de Phone Number [facility] [address] [place] [address], [place] [phone] * Colonoscopy ( APPLICATION TRAINER) Narrative [facility] TO EPIC CONVERSION - APPLICATION TRAINER Documented hx of procedure Procedure Note Cesar Tejada MD - 04/19/2018 Documented hx of procedure us Generic Conversion Md TEJADA GI PROCEDURE ORDERABLES Final Result Performing Organization Address City/[facility] Co de Phone Number [facility] TO EPIC CONVERSION from Last 3 Months or Most Recently Relevant to Health Maintenance Insurance MEDICARE MEDICAID Care Teams Pizza Maker Relationship Specialty Start Date End Date Lashaun Herron FNP [address] [place] [id number] PCP - General Nurse Practitioner Family 10/30/20
--- OUTSIDE RECORDS SUMMARY | 2025-06-11 12:07 | XMS_ITS | Clinical Summary ---
Author Organization [facility] Address [address] [place] [address] Care Team Providers Care Human Resources Operations Specialist Name Role Phone Yovanny Acevedo DO Primary Care Provider [phone] Source Comments [facility],non-owned Affiliates and Associated Physician Practices is amultiple site organization consisting of ambulatory clinics and hospital sitesin [place], [place], [place] and [place]. This disclosure is being madepursuant to the Care Everywhere program and may not contain all information available regarding this patient. 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 Gender Identity Not on file Sexual Orientation [...] this topic Medical Devices Implanted Type Area Factory Supervisor Device Identifier Shelf Expiration Date Model / Serial / Lot Tiss Jennifer Srvc Fee 7.0 X 14mm X 11mm Implanted:Qty: 1 on 11/19/2018 by Damion Armendariz MD at [facility] Right: Spine [employer] 08/18/2021 [id number] / / Plate 23mm 1 Lvl Ti Spne Crv Ant Zevo Implanted:Qty: 1 on 11/19/2018 by Damion Armendariz MD at [facility] Right: Spine [employer] Spine [id number] / / Screw 3.5mm 15mm Spne Crv Ant Shahid Slf Implanted:Qty: 4 on 11/19/2018 by Damion Armendariz MD at [facility] Right: Spine [employer] [id number] / / Procedures Procedure Name Priority Date/Time [...] - 26 mg/dL 11/06/2018 11:49 AM CDT [facility] Creatinine 1.0 0.6 - 1.2 mg/dL 11/06/2018 11:49 AM CDT [facility] Sodium 139 136 - 145 mmol/L 11/06/2018 11:49 AM CDT [facility] Potassium 4.0 3.5 - 4.5 mmol/L 11/06/2018 11:49 AM CDT [facility] Chloride 105 98 - 107 mmol/L 11/06/2018 11:49 AM [facility] CO2 24 22 - 29 mmol/L 11/06/2018 11:49 AM [facility] Glucose 121(H) 70 - 115 mg/dL 11/06/2018 11:49 AM [facility] Calcium 10.0 8.4 - 10.2 mg/dL 11/06/2018 11:49 AM [facility] Anion Gap 14 8 - 18 11/06/2018 11:49 AM [facility] BUN/Creatinine Ratio 16 7 - 23 11/06/2018 11:49 AM [facility] Osmolality Calculated 290 270 - 300 mOsm/kg 11/06/2018 11:49 AM [facility] eGFR >60 >60 mL/min/1.7 3 m2 11/06/2018 11:49 AM [facility] Blood BLOOD SPECIMEN / Unknown Lab Venipuncture / Unknown 11/06/2018 11:14 AM CDT 11/06/2018 11:28 AM CDT us Felicia Fonseca MD LAB - CHEMISTRY ORDERABLES Sonia l Result [address] [phone] * HEPATITIS C AB SCREEN RFLX NAAT QUANT (08/31/2018 5:05 PM CDT) Hepatitis C Antibody Non-react raúl Non-reac tive 08/31/2018 6:33 PM [facility] Comment: Hepatitis C Antibody screen indicates [...] LAB - CHEMISTRY ORDERABL ES Final Result [address] [place] [address], [facility] [phone] from Last 3 Months or Most Recently Relevant to Health Maintenance Insurance [facility] Care Teams Human Resources Operations Specialist Relationship Specialty Start Date End Date Yovanny Acevedo DO PCP - General 10/22/18
[2025-06-11 12:17] LABS: INR 1.0; Prothrombin Time 13.1 Seconds (11.1-14.7)
[2025-06-11 12:18] LABS: Partial Thromboplastin Time 26.5 Seconds (22.3-36.8)
[2025-06-11 12:22] LABS: Alanine Aminotransferase 21 U/L (6-50); Albumin Level 4.1 g/dL (3.5-5.1); Alkaline Phosphatase 179 U/L (38-126); Anion Gap 4 mmol/L (4-12); Aspartate Amino Transferase 25 U/L (17-59); Bilirubin,Total 0.5 mg/dL (0.2-1.3); Blood Urea Nitrogen 12 mg/dL (9-20); Calcium 9.0 mg/dL (8.4-10.2); Carbon Dioxide 25 mmol/L (22-30); Chloride 110 mmol/L (98-107); Estimated CRCL calculation 111 ml/min; Estimated Glomerular Filt Rate > 60; Glucose 196 mg/dL (65-110); Lipase 84 U/L (23-300); Potassium 4.2 mmol/L (3.4-5.0); Sodium 139 mmol/L (137-145); Total Protein 7.0 g/dL (6.3-8.2)
[2025-06-11 12:33] LABS: Troponin I < 0.012 ng/mL (0.000-0.034)
[2025-06-11 12:36] LABS: NT Pro B Type Natriuretic Pept 55 pg/mL (19.9-100)
[2025-06-11] MEDS: METOPROLOL TARTRATE 25 MG TABLET PO (13:40)
--- NOTE | 2025-06-11 13:44 | WPCEDHO ---
ED Hand Off Checklist All vitals saved:y IV Site documented:y All med administrations documented:y Triage Note Triage Note Patient reports driving and 06/11/25 11:35 developing left side chest pain with radiation into left arm, positive sweating and nausea ( without vomiting) Patient was admitted to [facility] for same thing 3 weeks ago (10/08). Had stress test scheduled for that Friday but they sent me home on Friday. No diagnosis except Chest Pain on his discharge paperwork. Patient reporting dull CP with hard hits Allergies No Known Allergies Allergy (Verified 06/11/25 11:14) Family History (Last Reviewed 06/11/25 @ 12:58 by Deonna García MD) Sibling Diabetes mellitus Father Cancer of unknown origin Mother Heart disease Hypertension Administered/Completed Medications Discontinued Medications Aspirin (Aspirin 81 Mg Chewable Tablet) 324 mg PO ONCE STA Stop: 06/11/25 11:15 Last Admin: 06/11/25 11:51 Dose: 324 mg Documented By: TLB Metoprolol Tartrate (Metoprolol Tartrate 25 Mg Tablet) 25 mg PO ONCE STA Stop: 06/11/25 13:04 Last Admin: 06/11/25 13:40 Dose: 25 mg Documented By: TLB Interventions/Assessments Cardiac Monitoring Start: 06/11/25 11:12 Freq: Status: Active Protocol: Document 06/11/25 11:46 TLB (Rec: 06/11/25 11:46 TLB [id number]) Green Building Engineer Assessment Green Building Engineer Yes Applied Pulse Rate (60-100) 67 EKG Rythm Sinus Rhythm IV / Saline Lock, Insert Start: 06/11/25 11:14 Freq: STAT Status: Active Protocol: Document 06/11/25 11:57 TLB (Rec: 06/11/25 11:57 TLB [id number]) IV Assessment Peripheral Access Right Forearm IV Catheter Access Initiated IV Insertion Date 06/11/25 IV Insertion Time 11:57 Catheter Gauge 18 IV Insertion 1 Attempts IV Care and WNL,Access Locked Maintenance PA: Cardiovascular Assessment Start: 06/11/25 11:12 Freq: Status: Active Protocol: Document 06/11/25 11:46 TLB (Rec: 06/11/25 11:46 TLB [id number]) Cardiovascular Assessment Cardiovascular Chest Pain,Dyspnea,Nausea Symptoms Skin Description Normal Color Jugular Vein None Distention PA: Respiratory Assessment Start: 06/11/25 11:12 Freq: Status: Active Protocol: Document 06/11/25 11:46 TLB (Rec: 06/11/25 11:48 TLB [id number]) Respiratory Assessment Symptoms None,Shortness of Breath at Rest Effort Normal Pattern Regular Depth Normal Chest Expansion Symmetrical Adult Capillary Normal/Less than 2 Seconds Refill Bilateral Throughout Phase Inspiratory & Expiratory Lung Sounds Clear Last Vital Signs Temperature 97.8 F 06/11/25 11:35 Pulse Rate 61 06/11/25 13:40 Respiratory Rate 18 06/11/25 13:30 Pulse Oximetry 99 06/11/25 13:30 Blood Pressure 147/82 H 06/11/25 13:30 Blood Pressure Mean 103 06/11/25 13:30 Blood Pressure Position Supine 06/11/25 11:35 Weight 113.6 kg 06/11/25 11:35 Last Result - Abnormals Only Hct 41.6 % (42.0-52.0) L 06/11/25 11:58 Chloride 110 mmol/L (98-107) H 06/11/25 11:58 Glucose 196 mg/dL (65-110) H 06/11/25 11:58 Alkaline Phosphatase 179 U/L (38-126) H 06/11/25 11:58 Most Recent Suicide Severity Rating Suicide Severity Rating NO RISK INDICATED 06/11/25 11:35
--- NOTE | 2025-06-11 13:47 | P.HP_ITS ---
H&P: HPI History of Present Illness Date/Time: 06/11/25 13:47 Chief Complaint: Chest pain Narrative: 70-year-old male with a past medical history of COPD, hypertension, diabetes, medical noncompliance, former smoker presents to the ED on 06/11/2025 with complaints of chest pain. The pain is rated 9/10 and is described as sharp with a sudden onset while driving and radiating to his left arm. Patient denies jaw pain, but endorses diaphoresis and nausea but no vomiting. Patient denies previous VT. The pain decreased while the patient was in the ED from sharp to dull pain to the left lateral chest. Pain worse with movement. Patient was admitted at [facility] on 05/19/2025 for 3 days with the same complaint. He states he was scheduled to have a stress test on 05/23 but he was sent home on 05/22 without explanation. Patient has a known history of hypertension and diabetes but does not take medication for either. However, he had been prescribed lisinopril and Mounjaro in the past. He states he is no longer on medication for his diabetes because his ?number was always 9? even though he was taking his injections as prescribed. He states his blood pressure improved so he was taken off blood pressure medications. Patient has been living in a motel for about the past week with his significant other as they are unable to afford rent. ED course: Initial vital signs 154/93, HR 69, respirations 20, afebrile and 99% on room air. Labs largely unremarkable. Chloride 110, glucose 196, alk-phos 179. Troponins negative. Lipase 84. EKG read by me shows sinus rhythm with no ischemic changes. Chest x-ray with no acute cardiopulmonary findings. Review of Systems Review of Systems: All systems reviewed & are unremarkable except as noted in HPI and below PMFSH Past Medical History Medical History COPD (chronic obstructive pulmonary disease) HTN (hypertension) Surgical History Surgical History History of surgery on upper extremity History of carpal tunnel release History of knee surgery left History of shoulder surgery right History of fusion of cervical spine Family History Family History (Updated 06/11/25 @ 14:24 by Honey Whatley RN) Sibling Diabetes mellitus Hypertension Father Cancer of unknown origin Acute myocardial infarction Hypertension Mother Heart disease Hypertension Acute myocardial infarction Asthma Cancer of unknown origin Sibling Hypertension Diabetes mellitus Sibling Hypertension Social History Social History Smoking packs per day: 1.5 Smoking cigarettes per day: 30.0 Years smoked: 50 Smoking pack-years: 75.00 Smoking status: Former smoker Second hand tobacco smoke exposure: Yes Smoking end date: 06/16/17 Additional smoking assessment comments: quit in 2014 Alcohol intake: never Substance use: never Substance use type: does not use Lack of Transportation: No Lack of Food: Sometimes True Current Housing: I Do Not Have Housing Concerned About Future Housing: YES Difficulty Paying Gas/Electric Bills: YES Difficulty Paying for Meds: No Currently Unemployed: No Education: Associate Degree Difficulty w/ Childcare or Family Care: No Spiritual care concerns: No Meds Home Medications and Allergies Home Medications ?Medication ?Instructions ?Recorded ?Confirmed ?Type albuterol sulfate 90 mcg/actuation 2 puff inhalation Q 4-6H PRN 07/28/19 06/11/25 History aerosol inhaler (Ventolin HFA) shortness of breath or wheezing alprazolam 2 mg tablet 2 mg PO HS PRN anxiety 06/1106/11/25 History hydrocodone 7.5 mg-acetaminophen 1 tablet PO Q6H PRN p ain 06/11/25 06/11/25 History 325 mg tablet Allergies Allergy/AdvReac Type Severity Reaction Status Date / Time No Known Allergies Allergy Verified 06/11/25 14:15 Vital Signs Vital Signs - 24 hr 06/11/25 11:35 06/11/25 11:46 06/11/25 12:30 Temperature 97.8 F Pulse Rate 69 67 67 Respiratory Rate 20 18 Blood Pressure 154/93 H 151/82 H Pulse Oximetry 99 99 06/11/25 13:30 06/11/25 13:40 Temperature Pulse Rate 62 61 Respiratory Rate 18 Blood Pressure 147/82 H Pulse Oximetry 99 Exam Narrative: GENERAL: non-toxic appearing, in no acute distress. HEAD: Normocephalic, atraumatic. EYES: PERRLA. Conjunctivae clear. NOSE: Normal no drainage. THROAT: Pharynx clear, no exudate. NECK: ?Trachea midline. No adenopathy, no masses. RESPIRATORY: Airway patent, respirations nonlabored. CTA. CARDIOVASCULAR: Regular rate and rhythm GASTROINTESTINAL: ?Abdomen is soft and nontender. ?No organomegaly. ?Bowel sounds normal in all quadrants. GENITOURINARY: ?Defer MUSCULOSKELETAL: Moves all extremities. No gross deformities. ?No calf tenderness. SKIN: Warm, dry, normal color. NEURO: A&O X4. Speech clear PSYCHIATRIC: Normal interaction Results Labs Labs: Short CBC 06/11/25 Range/Units 11:58 WBC 6.8 (4.5-10.0) K/mm3 Hgb 14.2 (14.0-18.0) g/dL Hct 41.6 L (42.0-52.0) % Plt Count 170 (150-375) k/mm3 BMP 06/11/25 11:58 Sodium 139 Potassium 4.2 Chloride 110 H Carbon Dioxide 25 BUN 12 Creatinine 0.73 Glucose 196 H Calcium 9.0 Cardiac Enzymes 06/11/25 Range/Units 11:58 Troponin I < 0.012 (0.000-0.034) ng/mL Liver Function 06/11/25 Range/Units 11:58 Total Bilirubin 0.5 (0.2-1.3) mg/dL AST 25 (17-59) U/L ALT 21 (6-50) U/L Alkaline Phosphatase 179 H (38-126) U/L Albumin 4.1 (3.5-5.1) g/dL Quality VTE Prophylaxis VTE prophylaxis: pharmacologic ordered Assessment and Plan Assessment and plan (1) Chest pain: Qualifiers: Chest pain type: unspecified Qualified Code(s): R07.9 - Chest pain, unspecified Code(s): R07.9 - Chest pain, unspecified Status: Acute Assessment and Plan: Sudden onset chest pain just prior to arrival described as sharp and rated 9/10. EKG was sinus rhythm and no ischemic changes. Chest pain subsided in ED to it dull ache to the left lateral chest. Had previous episode earlier this month and was hospitalized at an outside hospital. - Troponin negative x3 - ASA 324 mg in ED - cardiology consulted, awaiting recs - lipid panel triglycerides 105, cholesterol 101, LDL 49 HDL 35 - echo ordered - No previous stress test for comparison - telemetry monitoring (2) Diabetes type 2: Qualifiers: Diabetes mellitus complication status: with hyperglycemia Diabetes mellitus termite inspector insulin use: without termite inspector use Qualified Code(s): E11.65 - Type 2 diabetes mellitus with hyperglycemia Code(s): E11.9 - Type 2 diabetes mellitus without complications Status: Acute Assessment and Plan: - hypoglycemia protocol - POC blood glucose ACHS - home medication: ?None - correct regimen ordered: Low-dose sliding scale - A1C 9.0 - peer educator consulted (3) COPD (chronic obstructive pulmonary disease): Qualifiers: COPD type: unspecified COPD Qualified Code(s): J44.9 - Chronic obstructive pulmonary disease, unspecified Code(s): J44.9 - Chronic obstructive pulmonary disease, unspecified Status: Chronic Assessment and Plan: Not in acute exacerbation. Patient has a p.r.n. albuterol inhaler prescribed (4) HTN (hypertension): Qualifiers: Hypertension type: essential hypertension Qualified Code(s): I10 - Essential (primary) hypertension Code(s): I10 - Essential (primary) hypertension Status: Chronic Assessment and Plan: Resume previously prescribed lisinopril at 10 mg daily (was previously 20 mg) Prior Studies I have reviewed the following patient records and this information was taken into consideration when formulating the assessment and plan.: previous labs, previous ER visits, previous hospitalizations and previous clinic visits Time Spent with Patient Time with patient: 45 - 74 minutes Hospitalist MIPS Advance Care Plan I have confirmed that the patient's Advanced Care Plan is present, code status is documented, or surrogate decision maker is listed in patient medical record.: Yes Medication Reconciliation I have utilized all available resources to obtain, update and review the patients current medications (includes all prescriptions, OTC, herbals, cannabis, and nutritional supplements).: Yes
--- NOTE | 2025-06-11 14:15 | ADMGEN ---
This patient, Thu Cai, was admitted to IMU Room 205-01. Patient/family oriented to hospital policies and general routines including ID bracelet, bed and alarms, visiting hours, pain management, procedures, bathroom and other care routines, personal items, smoking policy, room service/diet, and visiting hours. Information on how to activate the Rapid Response Team has been discussed. Patient/Family are encouraged to report perceived risks to care and to ask questions if they do not understand what they are told or what they should do.
[2025-06-11 15:11] LABS: Cholesterol 101 mg/dL (0-200); HDL Direct 35 mg/dL; Hemoglobin A1C 9.0 % (<5.7); Triglycerides 105 mg/dL (<150)
[2025-06-11 15:21] LABS: Troponin I < 0.012 ng/mL (0.000-0.034)
[2025-06-11 18:32] LABS: Troponin I < 0.012 ng/mL (0.000-0.034)
[2025-06-11] MEDS: ENOXAPARIN 40 MG/0.4 ML SYRINGE SUB-Q (21:31)
[2025-06-12] VITALS (14 sets, daily range): BP systolic 103–137; BP diastolic 55–97; PULSE 61–90; RESP 15–20; TEMP 36.6–37.1; O2SAT 98–100
[2025-06-12 03:52] LABS: Hematocrit 42.3 % (42.0-52.0); Hemoglobin 14.1 g/dL (14.0-18.0); Immature Granulocyte Percent A 0.5 % (0-0.5); Lymphocytes Absolute Auto 1.70 K/mm3 (0.9-3.2); Mean Corpuscular HGB Conc 33.3 g/dl (32-36); Mean Corpuscular Hemoglobin 30.5 pg (26-34); Mean Corpuscular Volume 91.6 fl (80-100); Nucleated Red Blood Cells Absolute Auto 0.000 K/mm3 (0.0-0.012); Nucleated Red Blood Cells Perc 0.0 % (0.0-0.2); Platelet Count Result 143 k/mm3 (150-375); Red Blood Count 4.62 M/mm3 (4.6-6.20); White Blood Count 6.3 K/mm3 (4.5-10.0)
[2025-06-12 04:17] LABS: Anion Gap 3 mmol/L (4-12); Blood Urea Nitrogen 9 mg/dL (9-20); Calcium 8.8 mg/dL (8.4-10.2); Carbon Dioxide 29 mmol/L (22-30); Chloride 108 mmol/L (98-107); Estimated CRCL calculation 99 ml/min; Estimated Glomerular Filt Rate > 60; Glucose 184 mg/dL (65-110); Potassium 4.1 mmol/L (3.4-5.0); Sodium 140 mmol/L (137-145)
--- NOTE | 2025-06-12 07:08 | P.PNIM_ITS ---
Assessment and Plan Assessment and Plan (1) Chest pain: Qualifiers: Chest pain type: unspecified Qualified Code(s): R07.9 - Chest pain, unspecified Code(s): R07.9 - Chest pain, unspecified Status: Acute Assessment and Plan: Sudden onset chest pain just prior to arrival described as sharp and rated 9/10. EKG was sinus rhythm and no ischemic changes. Chest pain subsided in ED to it dull ache to the left lateral chest. Had previous episode earlier this month and was hospitalized at an outside hospital. - Troponin negative x3 - No previous stress test for comparison - telemetry monitoring - continue ASA - Cardiology consulted, planning for echo and stress test in a.m. NPO at midnight. L (2) Diabetes type 2: Qualifiers: Diabetes mellitus complication status: with hyperglycemia Diabetes mellitus broom maker insulin use: without retirement use Qualified Code(s): E11.65 - Type 2 diabetes mellitus with hyperglycemia Code(s): E11.9 - Type 2 diabetes mellitus without complications Status: Acute Assessment and Plan: - hypoglycemia protocol - POC blood glucose ACHS - home medication: ?None - continue low dose SSI. - A1C 9.0 - manager clinical consulted - will plan to start metformin and probably glipizide on discharge (3) COPD (chronic obstructive pulmonary disease): Qualifiers: COPD type: unspecified COPD Qualified Code(s): J44.9 - Chronic obstructive pulmonary disease, unspecified Code(s): J44.9 - Chronic obstructive pulmonary disease, unspecified Status: Chronic Assessment and Plan: -Not in acute exacerbation. Patient has a p.r.n. albuterol inhaler prescribed (4) HTN (hypertension): Qualifiers: Hypertension type: essential hypertension Qualified Code(s): I10 - Essential (primary) hypertension Code(s): I10 - Essential (primary) hypertension Status: Chronic Assessment and Plan: -Resume previously prescribed lisinopril at 10 mg daily (was previously 20 mg) Plan Code status:full code Dispo: home in 1-2 days pending clinical course DVT prophylaxis: Vendormatex Medical Record Review I have reviewed the following patient records and this information was taken into consideration when formulating the assessment and plan.: previous labs Subjective Date/time seen: 06/12/25 07:08 Interval history: Patient seen and examined up in chair. Having some mild chest discomfort that is reproducible. Denies current shortness of breath, diaphoresis, lightheadedness. Discussed awaiting Cardiology recs, patient agreeable. Review of Systems Review of Systems: All systems reviewed & are unremarkable except as noted in HPI and below Exam Narrative: General: NAD Eyes: EOMI ENT: neck supple Cardiovascular: Regular rate and rhythm Respiratory: Clear to auscultation, respirations even and unlabored on RA Gastrointestinal: Soft, non tender Genitourinary: no suprapubic tenderness Musculoskeletal: No edema, left-sided chest tenderness without palpation Skin: warm, dry Neuro: Alert. Psych: Mood appropriate Objective Data Vital Signs Vital Signs: Vital Signs - 24 hr 06/11/25 11:35 06/11/25 11:46 06/11/25 12:30 Temperature 97.8 F Pulse Rate 69 67 67 Respiratory Rate 20 18 Blood Pressure 154/93 H 151/82 H Pulse Oximetry 99 99 Oxygen Delivery 06/11/25 13:30 06/11/25 13:40 06/11/25 14:04 Temperature Pulse Rate 62 61 61 Respiratory Rate 18 18 Blood Pressure 147/82 H Pulse Oximetry 99 99 Oxygen Delivery Room Air 06/11/25 14:10 06/11/25 16:00 06/11/25 16:00 Temperature 97.6 F 98.0 F Pulse Rate 63 61 63 Respiratory Rate 17 18 17 Blood Pressure 154/84 H 121/64 Pulse Oximetry 100 99 98 Oxygen Delivery Room Air 06/11/25 16:00 06/11/25 18:00 06/11/25 19:33 Temperature 97.9 F Pulse Rate 61 74 60 Respiratory Rate 16 Blood Pressure 125/65 Pulse Oximetry 98 Oxygen Delivery 06/11/25 20:00 06/11/25 20:00 06/11/25 22:00 Temperature Pulse Rate 66 59 L Respiratory Rate Blood Pressure Pulse Oximetry 98 Oxygen Delivery Room Air 06/11/25 23:58 06/12/25 00:00 06/12/25 00:00 Temperature 97.9 F Pulse Rate 59 L 64 Respiratory Rate 14 Blood Pressure 135/55 L Pulse Oximetry 100 100 Oxygen Delivery Room Air 06/12/25 02:00 06/12/25 04:00 06/12/25 04:00 Temperature 98.0 F Pulse Rate 61 83 Respiratory Rate 15 Blood Pressure 103/63 Pulse Oximetry 100 99 Oxygen Delivery Room Air 06/12/25 04:00 06/12/25 06:00 Temperature Pulse Rate 66 66 Respiratory Rate Blood Pressure Pulse Oximetry Oxygen Delivery Intake/Output Intake/Output: Intake & Output 06/09/25 06/10/25 06/11/25 06/12/25 23:59 23:59 23:59 23:59 Intake Total 790 500 Balance 790 500 Meds/Results Medications: Active Medications Generic Name Dose Route Start Last Admin Trade Name Freq PRN Reason Stop Dose Admin Acetaminophen 650 mg 06/11/25 13:04 Acetaminophen 325 Mg Tablet PO Q4H PRN Mild Pain (1-3) or Fever Hydrocodone Bitart/Acetaminophen 1 tab 06/11/25 16:03 Hydrocodone/Acetaminophen (*Crx) 7.5-325 Mg Tablet PO Q6H PRN Pain 4-6 Albuterol 2.5 mg 06/11/25 16:02 Albuterol Sulfate Neb 2.5 Mg/3 Ml Inh INHALATION Q6HRT PRN Shortness Of Breath Or Wheezing Alprazolam 2 mg 06/11/25 16:03 Alprazolam (*Crx) 0.5 Mg Tablet PO HS PRN Anxiety Aspirin 81 mg 06/12/25 08:00 Aspirin 81 Mg Chewable Tablet PO DAILY@0800 [facility] Dextrose 12.5 gm 06/11/25 16:04 Dextrose 50% 25 Gm/50 Ml Syringe IV PUSH PRN PRN Hypoglycemia Protocol Enoxaparin Sodium 40 mg 06/11/25 21:00 06/11/25 21:31 Enoxaparin 40 Mg/0.4 Ml Syringe SUB-Q 40 mg HS PARISA Administration Glucagon 1 mg 06/11/25 16:04 Glucagon For Inj 1 Mg Vial IM PRN PRN Hypoglycemia Protocol Glucose 15 gm 06/11/25 16:04 Glucose Oral Gel 15 Gm Of Glucse In 37.5 Gm Tube PO PRN PRN Hypoglycemia Protocol Dextrose 1,000 mls @ 100 mls/hr 06/11/25 16:04 Dextrose 5% 1,000 Ml IVPB PRN PRN Hypoglycemia Protocol Insulin Aspart 2 - 5 units 06/11/25 17:00 06/11/25 17:07 Insulin Aspart (*Bkc) 100 Units/Ml SUB-Q Not Given TIDWM [facility] Protocol Lisinopril 10 mg 06/12/25 09:00 Lisinopril 10 Mg Tablet PO DAILY [facility] Radiology Results: ITS Impressions Chest X-Ray 06/11/25 12:49 IMPRESSION: 1. No acute cardiopulmonary findings. Labs Labs: Laboratory Results - last 24 hr 06/11/25 06/11/25 06/11/25 11:58 14:30 16:26 WBC 6.8 RBC 4.62 Hgb 14.2 Hct 41.6 L MCV 90.0 MCH 30.7 MCHC 34.1 RDW 13.2 Plt Count 170 MPV 9.1 Immature Gran % (Auto) 0.3 Neut % (Auto) 62.7 Lymph % (Auto) 25.3 Bibb % (Auto) 8.5 Eos % (Auto) 2.5 Baso % (Auto) 0.7 Lymph # (Auto) 1.73 Bibb # (Auto) 0.6 Eos # (Auto) 0.2 Baso # (Auto) 0.1 Abs Immat Gran (auto) 0.02 Absolute Neuts (auto) 4.3 Absolute Nucleated RBC 0.000 Nucleated RBC % 0.0 PT 13.1 INR 1.0 APTT 26.5 Sodium 139 Potassium 4.2 Chloride 110 H Carbon Dioxide 25 Anion Gap 4 BUN 12 Creatinine 0.73 Estim Creat Clear Calc 111 Estimated GFR > 60 Glucose 196 H POC Capillary Glucose 248 H Hemoglobin A1c 9.0 H Calcium 9.0 Total Bilirubin 0.5 AST 25 ALT 21 Alkaline Phosphatase 179 H Troponin I < 0.012 < 0.012 NT-Pro-B Natriuret Pep 55 Total Protein 7.0 Albumin 4.1 Triglycerides 105 Cholesterol 101 LDL Cholesterol Direct 49 HDL Direct 35 Lipase 84 06/11/25 06/11/25 06/12/25 17:39 20:35 03:39 WBC 6.3 RBC 4.62 Hgb 14.1 Hct 42.3 MCV 91.6 MCH 30.5 MCHC 33.3 RDW 13.5 Plt Count 143 L MPV 8.7 Immature Gran % (Auto) 0.5 Neut % (Auto) 59.2 Lymph % (Auto) 27.0 Bibb % (Auto) 8.9 H Eos % (Auto) 3.8 Baso % (Auto) 0.6 Lymph # (Auto) 1.70 Bibb # (Auto) 0.6 Eos # (Auto) 0.2 Baso # (Auto) 0.0 Abs Immat Gran (auto) 0.03 Absolute Neuts (auto) 3.7 Absolute Nucleated RBC 0.000 Nucleated RBC % 0.0 PT INR APTT Sodium 140 Potassium 4.1 Chloride 108 H Carbon Dioxide 29 Anion Gap 3 L BUN 9 Creatinine 0.82 Estim Creat Clear Calc 99 Estimated GFR > 60 Glucose 184 H POC Capillary Glucose 220 H Hemoglobin A1c Calcium 8.8 Total Bilirubin AST ALT Alkaline Phosphatase Troponin I < 0.012 NT-Pro-B Natriuret Pep Total Protein Albumin Triglycerides Cholesterol LDL Cholesterol Direct HDL Direct Lipase 06/12/25 06:47 WBC RBC Hgb Hct MCV MCH MCHC RDW Plt Count MPV Immature Gran % (Auto) Neut % (Auto) Lymph % (Auto) Bibb % (Auto) Eos % (Auto) Baso % (Auto) Lymph # (Auto) Bibb # (Auto) Eos # (Auto) Baso # (Auto) Abs Immat Gran (auto) Absolute Neuts (auto) Absolute Nucleated RBC Nucleated RBC % PT INR APTT Sodium Potassium Chloride Carbon Dioxide Anion Gap BUN Creatinine Estim Creat Clear Calc Estimated GFR Glucose POC Capillary Glucose 261 H Hemoglobin A1c Calcium Total Bilirubin AST ALT Alkaline Phosphatase Troponin I NT-Pro-B Natriuret Pep Total Protein Albumin Triglycerides Cholesterol LDL Cholesterol Direct HDL Direct Lipase
--- NOTE | 2025-06-12 09:33 | P.CONCA_ITS ---
Assessment and Plan Assessment and plan (1) Chest pain: Qualifiers: Chest pain type: unspecified Qualified Code(s): R07.9 - Chest pain, unspecified Code(s): R07.9 - Chest pain, unspecified Status: Acute Plan 70-year-old man with intermittent atypical sounding chest pain for the last week to 10 days. Symptoms are not suggestive of myocardial ischemia in my opinion. He is readmitted to this hospital after being discharged recently within the last week from [place] without any diagnosis has not been made. Because he has been admitted twice stress testing has been discussed to conduct an ischemia workup which is reasonable. Since the patient is expecting that I will order a stress test echo for tomorrow morning. I did spend some time discussing with he and his significant other the concept of concern regarding false-positive testing and people with low pretest probability of disease. We will follow-up tomorrow after the stress test takes place Jed Ponce MD [facility] History of Present Illness History of Present Illness Consult date/time: 06/12/25 09:33 Reason For Visit: Chest Pain Narrative: This is a 70-year-old man I am seeing this morning at the request of the hospitalist because of chest pain. Patient is not known to me prior to this encounter. He is not known to have any cardiac problems. He does carry the diagnosis of hypertension and [id number] diabetes which is managed by his PCP. He reports that in the last week to 10 days he has been having episodes of sudden chest pain that he describes as a sudden sharp left lateral chest pain a couple of episodes have been associated with some either radiation to her paresthesias to the left arm. The episodes are not occurred or triggered by physical exertion they are not accompanied by any shortness of breath diaphoresis nausea or vomiting. He says the symptoms last for a few minutes and then resolve. When the pain is there it is aggravated by deep breathing. He says that he went to the emergency room at [place] and was admitted shortly in the hospital where he was evaluated and discharged. He says it was some discussion of a stress test being done but it was not performed. He had more of this symptom yesterday when he was driving with his significant other in this area so he came to [facility] to be evaluated here. His electrocardiogram is unremarkable other than an incomplete right bundle branch block his troponin levels are also unremarkable. He is a nonsmoker having quit smoking a couple of decades ago. He does not drink ethanol excessively he does not have any family history of premature ischemic heart disease. Review of Systems 2 Constitutional: Constitutional: Reports no additional constitutional complaints Eyes: Eyes: Reports no additional eye complaints ENT: Reports system reviewed and no additional complaints, except as documented Cardiovascular: Cardiovascular: Reports as per HPI Respiratory: Respiratory: Reports no additional respiratory complaints Gastrointestinal: Gastrointestinal: Reports no additional gastrointestinal complaints Musculoskeletal: Musculoskeletal: Reports no additional musculoskeletal complaints Integumentary/Breasts: Skin/Breast: Reports system reviewed and no additional complaints, except as docu Endocrine: Endocrine: Reports no additional endocrine complaints Hematologic/Lymphatic: Hematologic/Lymphatic: Reports no additional hematologic/lymphatic complaints Allergic/Immunologic: Allergic/Immunologic: Reports no additional allergic/immunologic complaints [facility] Past Medical History Medical History COPD (chronic obstructive pulmonary disease) HTN (hypertension) Surgical History Surgical History History of surgery on upper extremity History of carpal tunnel release History of knee surgery left History of shoulder surgery right History of fusion of cervical spine Family History Family History (Updated 06/11/25 @ 14:24 by Honey Whatley RN) Sibling Diabetes mellitus Hypertension Father Cancer of unknown origin Acute myocardial infarction Hypertension Mother Heart disease Hypertension Acute myocardial infarction Asthma Cancer of unknown origin Sibling Hypertension Diabetes mellitus Sibling Hypertension Social History Social History Smoking packs per day: 1.5 Smoking cigarettes per day: 30.0 Years smoked: 50 Smoking pack-years: 75.00 Smoking status: Former smoker Second hand tobacco smoke exposure: Yes Smoking end date: 06/16/17 Additional smoking assessment comments: quit in 2014 Alcohol intake: never Substance use: never Substance use type: does not use Lack of Transportation: No Lack of Food: Sometimes True Current Housing: I Do Not Have Housing Concerned About Future Housing: YES Difficulty Paying Gas/Electric Bills: YES Difficulty Paying for Meds: No Currently Unemployed: No Education: Associate Degree Difficulty w/ Childcare or Family Care: No Spiritual care concerns: No Meds Home Medications and Allergies Home Medications ?Medication ?Instructions ?Recorded ?Confirmed ?Type albuterol sulfate 90 mcg/actuation 2 puff inhalation Q 4-6H PRN 07/28/19 06/11/25 History aerosol inhaler (Ventolin HFA) shortness of breath or wheezing alprazolam 2 mg tablet 2 mg PO HS PRN anxiety 06/1106/11/25 History hydrocodone 7.5 mg-acetaminophen 1 tablet PO Q6H PRN p ain 06/11/25 06/11/25 History 325 mg tablet Allergies Allergy/AdvReac Type Severity Reaction Status Date / Time No Known Allergies Allergy Verified 06/11/25 14:15 Vital Signs Vital Signs - 24 hr 06/11/25 11:35 06/11/25 11:46 06/11/25 12:30 Temperature 36.6 C Pulse Rate 69 67 67 Respiratory Rate 20 18 Blood Pressure 154/93 H 151/82 H Pulse Oximetry 99 99 Oxygen Delivery 06/11/25 13:30 06/11/25 13:40 06/11/25 14:04 Temperature Pulse Rate 62 61 61 Respiratory Rate 18 18 Blood Pressure 147/82 H Pulse Oximetry 99 99 Oxygen Delivery Room Air 06/11/25 14:10 06/11/25 16:00 06/11/25 16:00 Temperature 36.4 C 36.7 C Pulse Rate 63 61 63 Respiratory Rate 17 18 17 Blood Pressure 154/84 H 121/64 Pulse Oximetry 100 99 98 Oxygen Delivery Room Air 06/11/25 16:00 06/11/25 18:00 06/11/25 19:33 Temperature 36.6 C Pulse Rate 61 74 60 Respiratory Rate 16 Blood Pressure 125/65 Pulse Oximetry 98 Oxygen Delivery 06/11/25 20:00 06/11/25 20:00 06/11/25 22:00 Temperature Pulse Rate 66 59 L Respiratory Rate Blood Pressure Pulse Oximetry 98 Oxygen Delivery Room Air 06/11/25 23:58 06/12/25 00:00 06/12/25 00:00 Temperature 36.6 C Pulse Rate 59 L 64 Respiratory Rate 14 Blood Pressure 135/55 L Pulse Oximetry 100 100 Oxygen Delivery Room Air 06/12/25 02:00 06/12/25 04:00 06/12/25 04:00 Temperature 36.7 C Pulse Rate 61 83 Respiratory Rate 15 Blood Pressure 103/63 Pulse Oximetry 100 99 Oxygen Delivery Room Air 06/12/25 04:00 06/12/25 06:00 06/12/25 08:00 Temperature 37.0 C Pulse Rate 66 66 79 Respiratory Rate 20 Blood Pressure 120/55 L Pulse Oximetry 98 Oxygen Delivery Exam 2 Const: General: comfortable HENMT: Mouth: Yes moist mucous membranes Eyes: Sclera: sclerae normal Neck: Neck: supple and no JVD Other: No carotid bruits Resp: Effort & Inspection: normal respiratory effort Auscultation: clear to auscultation bilaterally Cardio: Rate: regular rate Rhythm: regular rhythm Other: PMI normal location and activity no gallop no murmur GI: GI Palp: Yes Soft to palpation Auscultation: normal bowel sounds Skin: General skin exam: normal color Neuro: Other: Alert and oriented x3 Extrem: General: normal to inspection Results Labs and Meds 06/12/25 03:39 06/12/25 03:39 Lab results: Cardiac Enzymes 06/11/25 06/11/25 06/11/25 Range/Units 11:58 14:30 17:39 AST 25 (17-59) U/L Troponin I < 0.012 < 0.012 < 0.012 (0.000-0.034) ng/mL Coagulation 06/11/25 Range/Units 11:58 PT 13.1 (11.1-14.7) Seconds APTT 26.5 (22.3-36.8) Seconds Lipids 06/11/25 Range/Units 14:30 Triglycerides 105 (<150) mg/dL Cholesterol 101 (0-200) mg/dL CBC 06/11/25 06/12/25 Range/Units 11:58 03:39 WBC 6.8 6.3 (4.5-10.0) K/mm3 RBC 4.62 4.62 (4.6-6.20) M/mm3 Hgb 14.2 14.1 (14.0-18.0) g/dL Hct 41.6 L 42.3 (42.0-52.0) % Plt Count 170 143 L (150-375) k/mm3 Lymph # (Auto) 1.73 1.70 (0.9-3.2) K/mm3 Scurry # (Auto) 0.6 0.6 (0.1-0.6) K/mm3 Eos # (Auto) 0.2 0.2 (0-0.3) K/mm3 Baso # (Auto) 0.1 0.0 (0.0-0.1) K/mm3 Comprehensive Metabolic Panel 06/11/25 06/12/25 Range/Units 11:58 03:39 Sodium 139 140 (137-145) mmol/L Potassium 4.2 4.1 (3.4-5.0) mmol/L Chloride 110 H 108 H (98-107) mmol/L Carbon Dioxide 25 29 (22-30) mmol/L BUN 12 9 (9-20) mg/dL Creatinine 0.73 0.82 (0.7-1.3) mg/dL Glucose 196 H 184 H (65-110) mg/dL Calcium 9.0 8.8 (8.4-10.2) mg/dL AST 25 (17-59) U/L ALT 21 (6-50) U/L Alkaline Phosphatase 179 H (38-126) U/L Total Protein 7.0 (6.3-8.2) g/dL Albumin 4.1 (3.5-5.1) g/dL Intake and Output 06/11/25 06/12/25 06/12/25 23:59 07:59 15:59 Intake Total 790 500 356 Balance 790 500 356 Intake: Oral 790 500 356 Other: # Unmeasured Voids 1 3 Number of Bowel Movements Today 0 Patient Weight 06/12/25 23:59 Weight 113 kg
[2025-06-12] MEDS: ASPIRIN 81 MG CHEWABLE TABLET PO (09:34)
[2025-06-12] MEDS: INSULIN ASPART (*BKC) 100 UNITS/ML SUB-Q ×3 (09:34→17:15)
[2025-06-12] MEDS: ENOXAPARIN 40 MG/0.4 ML SYRINGE SUB-Q (22:03)
[2025-06-13] VITALS (13 sets, daily range): BP systolic 143–155; BP diastolic 75–94; PULSE 69–91; RESP 12–22; TEMP 36.3–36.5; O2SAT 98–100; BMI 32.8
--- NOTE | 2025-06-13 | EST_ITS ---
Patient Info Name: Thu Cai Age: 70 years : 1955 Gender: Male Ht: 73 in Wt: 249 lbs BSA: 2.44 m2 HR: 64 bpm BP: 132 / 83 mmHg Technical Quality: Poor Exam Date: 06/13/2025 11:07 AM Patient Status: I Admit Date: 06/11/2025 Exam Type: CA stress echo Treadmill exercise stress echocardiogram is performed. Staff Referring Physician: Deonna García MD [employer] Software Engineer: Cristi Gillis III Ordering Physician: Jed Ponce MD Attending Provider: Lashonda Badillo Exercise Technologist: Marla Gayle Exercise Physician: Jordan Richards MD Summary 1. Pt had bad knees, almost collapsed during stress test. Pt unable to continue due to knee/hips and chest/ L side pain. 2. Negative stress EKG and echo for ischemia. 3. Patient did have chest pain during the stress test. Stress Echo Findings Left Ventricle Negative stress echo for ischemia. Left Ventricle Left ventricular chamber size are normal with no regional wall motion abnormalities with an estimated ejection fraction of 60-65. Protocol: [place] Stress ECG Details Stage: REST Duration (min): 0 min : 52 sec Speed (mph): 0.0 Grade (%): 0 HR (bpm): 64 SBP (mmHg): 132 DBP (mmHg): 83 METS: --- Stage: REST Duration (min): 25 min : 47 sec Speed (mph): 0.0 Grade (%): 0 HR (bpm): 86 SBP (mmHg): 132 DBP (mmHg): 83 METS: --- Stage: STAGE 1 Duration (min): 1 min : 0 sec Speed (mph): 1.7 Grade (%): 10 HR (bpm): 93 SBP (mmHg): 132 DBP (mmHg): 83 METS: --- Stage: STAGE 1 Duration (min): 2 min : 0 sec Speed (mph): 1.7 Grade (%): 10 HR (bpm): 112 SBP (mmHg): 132 DBP (mmHg): 83 METS: --- Stage: STAGE 1 Duration (min): 3 min : 0 sec Speed (mph): 1.7 Grade (%): 10 HR (bpm): 119 SBP (mmHg): 158 DBP (mmHg): 73 METS: --- Stage: STAGE 2 Duration (min): 0 min : 3 sec Speed (mph): 2.5 Grade (%): 12 HR (bpm): 120 SBP (mmHg): 158 DBP (mmHg): 73 METS: --- Stage: RECOVERY Duration (min): 0 min : 56 sec Speed (mph): 0.0 Grade (%): 0 HR (bpm): 112 SBP (mmHg): 158 DBP (mmHg): 73 METS: --- Stage: RECOVERY Duration (min): 1 min : 56 sec Speed (mph): 0.0 Grade (%): 0 HR (bpm): 98 SBP (mmHg): 158 DBP (mmHg): 73 METS: --- Stage: RECOVERY Duration (min): 2 min : 56 sec Speed (mph): 0.0 Grade (%): 0 HR (bpm): 85 SBP (mmHg): 158 DBP (mmHg): 73 METS: --- Stage: RECOVERY Duration (min): 3 min : 56 sec Speed (mph): 0.0 Grade (%): 0 HR (bpm): 84 SBP (mmHg): 158 DBP (mmHg): 73 METS: --- Stage: RECOVERY Duration (min): 4 min : 56 sec Speed (mph): 0.0 Grade (%): 0 HR (bpm): 86 SBP (mmHg): 171 DBP (mmHg): 78 METS: --- Stage: RECOVERY Duration (min): 5 min : 56 sec Speed (mph): 0.0 Grade (%): 0 HR (bpm): 78 SBP (mmHg): 171 DBP (mmHg): 78 METS: --- Stage: RECOVERY Duration (min): 6 min : 56 sec Speed (mph): 0.0 Grade (%): 0 HR (bpm): 74 SBP (mmHg): 154 DBP (mmHg): 81 METS: --- Stage: RECOVERY Duration (min): 7 min : 56 sec Speed (mph): 0.0 Grade (%): 0 HR (bpm): 74 SBP (mmHg): 154 DBP (mmHg): 81 METS: --- Stage: RECOVERY Duration (min): 8 min : 56 sec Speed (mph): 0.0 Grade (%): 0 HR (bpm): 72 SBP (mmHg): 145 DBP (mmHg): 82 METS: --- Stage: RECOVERY Duration (min): 9 min : 21 sec Speed (mph): 0.0 Grade (%): 0 HR (bpm): 72 SBP (mmHg): 145 DBP (mmHg): 82 METS: --- Rest HR: 86 bpm Peak HR: 122 bpm Rest Sys BP: 132 mmHg Peak Sys BP: 171 mmHg Max Pred HR: 152 bpm % Max Pred HR: 80 % Target HR: 129 bpm Max RPP: 20,862 bpm*mmHg Frazier Score: -5 Target HR Summary: Patient's target heart rate was not achieved due to leg pain BP Response: Normal blood pressure response Termination Reason: Chest pain Cardiac Symptoms: Chest pain Max ST Seg Deviation: 2 mm Total Time: 3 min : 3 sec Rest [place] BP: 83 mmHg Peak [place] BP: 78 mmHg Angina Score: None Total METS: 4.7 Resting ECG Normal sinus rhythm. Stress ECG Sub maximal stress test negative for ischemia. Maximum heart rate achieved 80% of max predicted. Arrhythmias Occasional PVCs. Report Signatures Stress ECG Echo
[2025-06-13] MEDS: ASPIRIN 81 MG CHEWABLE TABLET PO (09:05)
--- NOTE | 2025-06-13 14:05 | PM.PNCARD ---
Progress Note: A&P Assessment and Plan (1) Chest pain: Qualifiers: Chest pain type: unspecified Qualified Code(s): R07.9 - Chest pain, unspecified Code(s): R07.9 - Chest pain, unspecified Status: Acute Plan - Chest pain - A new diagnosis Type 2 diabetes - Hypertension - In regards to chest pain recurrent for the last 10 days. Troponins negative and EKG does not show ischemia. Underwent stress ECHO that was submaximal and developed chest pain while having the test. The stress test itself was negative. Due to ongoing exertional chest pain we discussed risks and benefits of cardiac catheterization he agrees to proceed. Will plan for tomorrow to do cardiac catheterization - Regards to hypertension, continue lisinopril.. - In regards to a new diagnosis of diabetes, check hemoglobin A1c and lipid panel Subjective Date/time seen: 06/13/25 14:05 Interval history: Date of service 06/13/2025-had submaximal stress test today and developed chest pain while he was having the stress test. He is pain-free now Review of Systems Constitutional: Constitutional: Reports no additional constitutional complaints Eyes: Eyes: Reports no additional eye complaints ENT: Reports system reviewed and no additional complaints, except as documented Cardiovascular: Cardiovascular: Reports as per HPI Respiratory: Respiratory: Reports no additional respiratory complaints Gastrointestinal: Gastrointestinal: Reports no additional gastrointestinal complaints Musculoskeletal: Musculoskeletal: Reports no additional musculoskeletal complaints Integumentary/Breasts: Skin/Breast: Reports system reviewed and no additional complaints, except as docu Endocrine: Endocrine: Reports no additional endocrine complaints Hematologic/Lymphatic: Hematologic/Lymphatic: Reports no additional hematologic/lymphatic complaints Allergic/Immunologic: Allergic/Immunologic: Reports no additional allergic/immunologic complaints Exam Const: General: comfortable HENMT: Mouth: Yes moist mucous membranes Eyes: Sclera: sclerae normal Neck: Neck: supple and no JVD Other: No carotid bruits Resp: Effort & Inspection: normal respiratory effort Auscultation: clear to auscultation bilaterally Cardio: Rate: regular rate Rhythm: regular rhythm Other: PMI normal location and activity no gallop no murmur GI: Auscultation: normal bowel sounds Skin: General skin exam: normal color Neuro: Other: Alert and oriented x3 Extrem: General: normal to inspection Objective Data Vital Signs Vital Signs: Vital Signs - 24 hr 06/12/25 16:00 06/12/25 16:00 06/12/25 16:00 Temperature 37.1 C Pulse Rate 75 76 Respiratory Rate 20 Blood Pressure 137/67 Pulse Oximetry 99 Oxygen Delivery Room Air 06/12/25 18:00 06/12/25 19:56 06/12/25 20:00 Temperature 36.6 C Pulse Rate 87 81 Respiratory Rate 20 Blood Pressure 125/59 L Pulse Oximetry 98 100 Oxygen Delivery Room Air 06/12/25 20:00 06/12/25 22:00 06/12/25 23:57 Temperature 37.0 C Pulse Rate 90 73 90 Respiratory Rate 16 Blood Pressure 136/76 Pulse Oximetry 100 Oxygen Delivery 06/13/25 00:00 06/13/25 00:00 06/13/25 02:00 Temperature Pulse Rate 80 91 Respiratory Rate Blood Pressure Pulse Oximetry 100 Oxygen Delivery Room Air 06/13/25 04:00 06/13/25 04:00 06/13/25 04:00 Temperature 36.4 C Pulse Rate 74 86 Respiratory Rate 16 Blood Pressure 143/93 H Pulse Oximetry 100 100 Oxygen Delivery Room Air 06/13/25 06:00 06/13/25 08:00 06/13/25 08:00 Temperature 36.3 C L Pulse Rate 76 72 Respiratory Rate 12 Blood Pressure 155/94 H Pulse Oximetry 100 Oxygen Delivery Room Air 06/13/25 08:00 06/13/25 10:00 06/13/25 11:50 Temperature 36.3 C L Pulse Rate 80 83 71 Respiratory Rate 22 H Blood Pressure 148/84 H Pulse Oximetry 99 Oxygen Delivery Intake/Output Intake/Output: Intake & Output 06/10/25 06/11/25 06/12/25 06/13/25 23:59 23:59 23:59 23:59 Intake Total 790 2726 480 Balance 790 2726 480 Meds/Results Medications: Active Medications Generic Name Dose Route Start Last Admin Trade Name Freq PRN Reason Stop Dose Admin Acetaminophen 650 mg 06/11/25 13:04 Acetaminophen 325 Mg Tablet PO Q4H PRN Mild Pain (1-3) or Fever Hydrocodone Bitart/Acetaminophen 1 tab 06/11/25 16:03 Hydrocodone/Acetaminophen (*Crx) 7.5-325 Mg Tablet PO Q6H PRN Pain 4-6 Albuterol 2.5 mg 06/11/25 16:02 Albuterol Sulfate Neb 2.5 Mg/3 Ml Inh INHALATION Q6HRT PRN Shortness Of Breath Or Wheezing Alprazolam 2 mg 06/11/25 16:03 Alprazolam (*Crx) 0.5 Mg Tablet PO HS PRN Anxiety Aspirin 81 mg 06/12/25 08:00 06/13/25 09:05 Aspirin 81 Mg Chewable Tablet PO 81 mg DAILY@0800 PARISA Administration Dextrose 12.5 gm 06/11/25 16:04 Dextrose 50% 25 Gm/50 Ml Syringe IV PUSH PRN PRN Hypoglycemia Protocol Enoxaparin Sodium 40 mg 06/11/25 21:00 06/12/25 22:03 Enoxaparin 40 Mg/0.4 Ml Syringe SUB-Q 40 mg HS PARISA Administration Glucagon 1 mg 06/11/25 16:04 Glucagon For Inj 1 Mg Vial IM PRN PRN Hypoglycemia Protocol Glucose 15 gm 06/11/25 16:04 Glucose Oral Gel 15 Gm Of Glucse In 37.5 Gm Tube PO PRN PRN Hypoglycemia Protocol Dextrose 1,000 mls @ 100 mls/hr 06/11/25 16:04 Dextrose 5% 1,000 Ml IVPB PRN PRN Hypoglycemia Protocol Insulin Aspart 3 - 6 units 06/13/25 08:00 06/13/25 12:10 Insulin Aspart (*Bkc) 100 Units/Ml SUB-Q Not Given TIDWM [facility] Protocol Lisinopril 10 mg 06/12/25 09:00 06/13/25 09:05 Lisinopril 10 Mg Tablet PO 10 mg DAILY PARISA Administration Perflutren Lipid Microsphere 0 ml 06/12/25 09:33 Perflutren Lipid Microspheres 1.5 Ml Vial Diluted To 10 Ml Total Volume IV PUSH 06/15/25 09:33 ONCE PRN adequate visualization Protocol Radiology Results: ITS Impressions Chest X-Ray 06/11/25 12:49 IMPRESSION: 1. No acute cardiopulmonary findings. Labs Labs: Laboratory Results - last 24 hr 06/12/25 06/12/25 06/13/25 17:14 20:38 07:41 POC Capillary Glucose 304 H 181 H 252 H 06/13/25 11:57 POC Capillary Glucose 163 H Quality VTE Prophylaxis VTE prophylaxis: pharmacologic ordered
--- NOTE | 2025-06-13 14:34 | P.PNIM_ITS ---
Assessment and Plan Assessment and Plan (1) Chest pain: Qualifiers: Chest pain type: unspecified Qualified Code(s): R07.9 - Chest pain, unspecified Code(s): R07.9 - Chest pain, unspecified Status: Acute Assessment and Plan: Sudden onset chest pain just prior to arrival described as sharp and rated 9/10. EKG was sinus rhythm and no ischemic changes. Chest pain subsided in ED to it dull ache to the left lateral chest. Had previous episode earlier this month and was hospitalized at an outside hospital. - Troponin negative x3 - No previous stress test for comparison - telemetry monitoring - continue ASA - stress echo submaximal and developed chest pain during testing. Cardio following and planning for [facility] tomorrow. NPO at [place]. (2) Diabetes type 2: Qualifiers: Diabetes mellitus intermodal owner operator truck driver insulin use: without intermodal owner operator truck driver use Diabetes mellitus complication status: with hyperglycemia Qualified Code(s): E11.65 - Type 2 diabetes mellitus with hyperglycemia Code(s): E11.9 - Type 2 diabetes mellitus without complications Status: Acute Assessment and Plan: - hypoglycemia protocol - POC blood glucose ACHS - home medication: ?None - continue moderate dose SSI. - A1c 9.0 - builder's labourer consulted - will plan to start metformin and probably glipizide on discharge (3) COPD (chronic obstructive pulmonary disease): Qualifiers: COPD type: unspecified COPD Qualified Code(s): J44.9 - Chronic obstructive pulmonary disease, unspecified Code(s): J44.9 - Chronic obstructive pulmonary disease, unspecified Status: Chronic Assessment and Plan: -Not in acute exacerbation. Patient has a p.r.n. albuterol inhaler prescribed (4) HTN (hypertension): Qualifiers: Hypertension type: essential hypertension Qualified Code(s): I10 - Essential (primary) hypertension Code(s): I10 - Essential (primary) hypertension Status: Chronic Assessment and Plan: -Resume previously prescribed lisinopril at 10 mg daily (was previously 20 mg) Plan Code status:full code Dispo: home in 1-2 days pending clinical course DVT prophylaxis: Lovenox Subjective Date/time seen: 06/13/25 14:34 Interval history: Patient seen and examined at bedside. Denies chest pain this AM. Noted stress test results and planning for [facility] tomorrow. Review of Systems Review of Systems: All systems reviewed & are unremarkable except as noted in HPI and below Exam Narrative: General: NAD, obese Eyes: EOMI ENT: neck supple Cardiovascular: Regular rate and rhythm Respiratory: Clear to auscultation, respirations even and unlabored on RA Gastrointestinal: Soft, non tender Genitourinary: no suprapubic tenderness Musculoskeletal: No edema Skin: warm, dry Neuro: Alert. Psych: Mood appropriate Objective Data Vital Signs Vital Signs: Vital Signs - 24 hr 06/12/25 16:00 06/12/25 16:00 06/12/25 16:00 Temperature 98.7 F Pulse Rate 75 76 Respiratory Rate 20 Blood Pressure 137/67 Pulse Oximetry 99 Oxygen Delivery Room Air 06/12/25 18:00 06/12/25 19:56 06/12/25 20:00 Temperature 97.9 F Pulse Rate 87 81 Respiratory Rate 20 Blood Pressure 125/59 L Pulse Oximetry 98 100 Oxygen Delivery Room Air 06/12/25 20:00 06/12/25 22:00 06/12/25 23:57 Temperature 98.6 F Pulse Rate 90 73 90 Respiratory Rate 16 Blood Pressure 136/76 Pulse Oximetry 100 Oxygen Delivery 06/13/25 00:00 06/13/25 00:00 06/13/25 02:00 Temperature Pulse Rate 80 91 Respiratory Rate Blood Pressure Pulse Oximetry 100 Oxygen Delivery Room Air 06/13/25 04:00 06/13/25 04:00 06/13/25 04:00 Temperature 97.6 F Pulse Rate 74 86 Respiratory Rate 16 Blood Pressure 143/93 H Pulse Oximetry 100 100 Oxygen Delivery Room Air 06/13/25 06:00 06/13/25 08:00 06/13/25 08:00 Temperature 97.4 F L Pulse Rate 76 72 Respiratory Rate 12 Blood Pressure 155/94 H Pulse Oximetry 100 Oxygen Delivery Room Air 06/13/25 08:00 06/13/25 10:00 06/13/25 11:50 Temperature 97.4 F L Pulse Rate 80 83 71 Respiratory Rate 22 H Blood Pressure 148/84 H Pulse Oximetry 99 Oxygen Delivery Intake/Output Intake/Output: Intake & Output 06/10/25 06/11/25 06/12/25 06/13/25 23:59 23:59 23:59 23:59 Intake Total 790 2726 480 Balance 790 2726 480 Meds/Results Medications: Active Medications Generic Name Dose Route Start Last Admin Trade Name Freq PRN Reason Stop Dose Admin Acetaminophen 650 mg 06/11/25 13:04 Acetaminophen 325 Mg Tablet PO Q4H PRN Mild Pain (1-3) or Fever Hydrocodone Bitart/Acetaminophen 1 tab 06/11/25 16:03 Hydrocodone/Acetaminophen (*Crx) 7.5-325 Mg Tablet PO Q6H PRN Pain 4-6 Albuterol 2.5 mg 06/11/25 16:02 Albuterol Sulfate Neb 2.5 Mg/3 Ml Inh INHALATION Q6HRT PRN Shortness Of Breath Or Wheezing Alprazolam 2 mg 06/11/25 16:03 Alprazolam (*Crx) 0.5 Mg Tablet PO HS PRN Anxiety Aspirin 81 mg 06/12/25 08:00 06/13/25 09:05 Aspirin 81 Mg Chewable Tablet PO 81 mg DAILY@0800 PARISA Administration Dextrose 12.5 gm 06/11/25 16:04 Dextrose 50% 25 Gm/50 Ml Syringe IV PUSH PRN PRN Hypoglycemia Protocol Enoxaparin Sodium 40 mg 06/11/25 21:00 06/12/25 22:03 Enoxaparin 40 Mg/0.4 Ml Syringe SUB-Q 40 mg HS PARISA Administration Glucagon 1 mg 06/11/25 16:04 Glucagon For Inj 1 Mg Vial IM PRN PRN Hypoglycemia Protocol Glucose 15 gm 06/11/25 16:04 Glucose Oral Gel 15 Gm Of Glucse In 37.5 Gm Tube PO PRN PRN Hypoglycemia Protocol Dextrose 1,000 mls @ 100 mls/hr 06/11/25 16:04 Dextrose 5% 1,000 Ml IVPB PRN PRN Hypoglycemia Protocol Insulin Aspart 3 - 6 units 06/13/25 08:00 06/13/25 12:10 Insulin Aspart (*Bkc) 100 Units/Ml SUB-Q Not Given TIDWM PARISA Protocol Lisinopril 10 mg 06/12/25 09:00 06/13/25 09:05 Lisinopril 10 Mg Tablet PO 10 mg DAILY PARISA Administration Perflutren Lipid Microsphere 0 ml 06/12/25 09:33 Perflutren Lipid Microspheres 1.5 Ml Vial Diluted To 10 Ml Total Volume IV PUSH 06/15/25 09:33 ONCE PRN adequate visualization Protocol Radiology Results: ITS Impressions Chest X-Ray 06/11/25 12:49 IMPRESSION: 1. No acute cardiopulmonary findings. Labs Labs: Laboratory Results - last 24 hr 06/12/25 06/12/25 06/13/25 17:14 20:38 07:41 POC Capillary Glucose 304 H 181 H 252 H 06/13/25 11:57 POC Capillary Glucose 163 H
[2025-06-13] MEDS: ENOXAPARIN 40 MG/0.4 ML SYRINGE SUB-Q (20:28)
[2025-06-14] VITALS (19 sets, daily range): BP systolic 101–138; BP diastolic 73–99; PULSE 61–101; RESP 12–20; TEMP 36.4–37.1; O2SAT 97–100
[2025-06-14 05:22] LABS: Hemoglobin A1C 9.3 % (<5.7)
[2025-06-14] MEDS: ASPIRIN 81 MG CHEWABLE TABLET PO (08:30)
--- NOTE | 2025-06-14 10:43 | PC.NURSE ---
Pt taken to cardiac yard laborer. Pt's at bedside.
--- NOTE | 2025-06-14 10:54 | P.SEDATION_ITS ---
Moderate Sedation Note-Pt Data Patient Data Diagnosis: Chest pain Present Complaint: Chest pain Procedure to be performed/Plan: Coronary angiogram Allergies Allergy/AdvReac Type Severity Reaction Status Date / Time No Known Allergies Allergy Verified 06/11/25 14:15 Home Medications ?Medication ?Instructions ?Recorded ?Confirmed ?Type albuterol sulfate 90 mcg/actuation 2 puff inhalation Q 4-6H PRN 07/28/19 06/11/25 History aerosol inhaler (Ventolin HFA) shortness of breath or wheezing alprazolam 2 mg tablet 2 mg PO HS PRN anxiety 06/1106/11/25 History hydrocodone 7.5 mg-acetaminophen 1 tablet PO Q6H PRN p ain 06/11/25 06/11/25 History 325 mg tablet Current Medications: Active Medications Acetaminophen (Acetaminophen 325 Mg Tablet) 650 mg PO Q4H PRN PRN Reason: Mild Pain (1-3) or Fever Hydrocodone Bitart/Acetaminophen (Hydrocodone/Acetaminophen (*Crx) 7.5-325 Mg Tablet) 1 tab PO Q6H PRN PRN Reason: Pain 4-6 Albuterol (Albuterol Sulfate Neb 2.5 Mg/3 Ml Inh) 2.5 mg INHALATION Q6HRT PRN PRN Reason: Shortness Of Breath Or Wheezing Alprazolam (Alprazolam (*Crx) 0.5 Mg Tablet) 2 mg PO HS PRN PRN Reason: Anxiety Aspirin (Aspirin 81 Mg Chewable Tablet) 81 mg PO DAILY@0800 [facility] Last Admin: 06/14/25 08:30 Dose: 81 mg Dextrose (Dextrose 50% 25 Gm/50 Ml Syringe) 12.5 gm IV PUSH PRN PRN; Protocol PRN Reason: Hypoglycemia Enoxaparin Sodium (Enoxaparin 40 Mg/0.4 Ml Syringe) 40 mg SUB-Q HS [facility] Last Admin: 06/13/25 20:28 Dose: 40 mg Glucagon (Glucagon For Inj 1 Mg Vial) 1 mg IM PRN PRN; Protocol PRN Reason: Hypoglycemia Glucose (Glucose Oral Gel 15 Gm Of Glucse In 37.5 Gm Tube) 15 gm PO PRN PRN; Protocol PRN Reason: Hypoglycemia Dextrose (Dextrose 5% 1,000 Ml) 1,000 mls @ 100 mls/hr IVPB PRN PRN; Protocol PRN Reason: Hypoglycemia Insulin Aspart (Insulin Aspart (*Bkc) 100 Units/Ml) 3 - 6 units SUB-Q TIDWM [facility]; Protocol Last Admin: 06/14/25 08:32 Dose: Not Given Lisinopril (Lisinopril 10 Mg Tablet) 10 mg PO DAILY [facility] Last Admin: 06/14/25 08:30 Dose: 10 mg Perflutren Lipid Microsphere (Perflutren Lipid Microspheres 1.5 Ml Vial Diluted To 10 Ml Total Volume) 0 ml IV PUSH ONCE PRN; Protocol PRN Reason: adequate visualization Stop: 06/15/25 09:33 Sedation/Anesthesia: No previous sedation/anesthesia problems (including family history). [facility] Past Medical History Medical History COPD (chronic obstructive pulmonary disease) HTN (hypertension) Surgical History Surgical History History of surgery on upper extremity History of carpal tunnel release History of knee surgery left History of shoulder surgery right History of fusion of cervical spine Family History Family History (Updated 06/11/25 @ 14:24 by Honey Whatley, RN) Sibling Diabetes mellitus Hypertension Father Cancer of unknown origin Acute myocardial infarction Hypertension Mother Heart disease Hypertension Acute myocardial infarction Asthma Cancer of unknown origin Sibling Hypertension Diabetes mellitus Sibling Hypertension Social History Social History Smoking packs per day: 1.5 Smoking cigarettes per day: 30.0 Years smoked: 50 Smoking pack-years: 75.00 Smoking status: Former smoker Second hand tobacco smoke exposure: Yes Smoking end date: 06/16/17 Additional smoking assessment comments: quit in 2014 Alcohol intake: never Substance use: never Substance use type: does not use Lack of Transportation: No Lack of Food: Sometimes True Current Housing: I Do Not Have Housing Concerned About Future Housing: YES Difficulty Paying Gas/Electric Bills: YES Difficulty Paying for Meds: No Currently Unemployed: No Education: Associate Degree Difficulty w/ Childcare or Family Care: No Spiritual care concerns: No Mod Sed Physical Exam Physical Exam Pre Procedural Exam: Normal: Appearance, Eyes, Ears, Nose, Neck, Throat, Airway, Lungs, Heart Size, Heart Rate, Heart Rhythm, Neuro Exam, Abdomen, Liver, Kidneys, Spleen, Breasts, Genitalia, Extremities and Skin Hours since solid foods: 8 Hours since liquid intake: 8 Mallampati Classification: class II Internal Medicine - PN: Obj Da Vital Signs Vital Signs: Vital Signs - 24 hr 06/13/25 11:50 06/13/25 12:00 06/13/25 12:00 Temperature 36.3 C L Pulse Rate 71 80 Respiratory Rate 22 H Blood Pressure 148/84 H Pulse Oximetry 99 Oxygen Delivery Room Air 06/13/25 14:00 06/13/25 16:00 06/13/25 16:00 Temperature 36.5 C Pulse Rate 77 69 78 Respiratory Rate 20 Blood Pressure 145/85 H Pulse Oximetry 98 Oxygen Delivery 06/13/25 16:00 06/13/25 18:00 06/13/25 20:00 Temperature Pulse Rate 81 Respiratory Rate Blood Pressure Pulse Oximetry Oxygen Delivery Room Air Room Air 06/13/25 20:00 06/13/25 20:00 06/13/25 22:00 Temperature 36.4 C Pulse Rate 74 88 81 Respiratory Rate 16 Blood Pressure 144/75 H Pulse Oximetry 100 Oxygen Delivery 06/13/25 23:53 06/14/25 00:00 06/14/25 00:00 Temperature 36.4 C L Pulse Rate 84 94 Respiratory Rate 18 Blood Pressure 138/73 Pulse Oximetry 100 Oxygen Delivery Room Air 06/14/25 02:36 06/14/25 03:58 06/14/25 04:00 Temperature Pulse Rate 75 66 Respiratory Rate Blood Pressure Pulse Oximetry Oxygen Delivery Room Air 06/14/25 04:00 06/14/25 06:06 06/14/25 08:00 Temperature 36.4 C L 37.1 C Pulse Rate 101 H 87 74 Respiratory Rate 20 16 Blood Pressure 132/79 126/76 Pulse Oximetry 98 99 Oxygen Delivery 06/14/25 08:00 06/14/25 10:00 Temperature Pulse Rate 76 77 Respiratory Rate Blood Pressure Pulse Oximetry Oxygen Delivery Intake/Output Intake/Output: Intake & Output 06/11/25 06/12/25 06/13/25 06/14/25 23:59 23:59 23:59 23:59 Intake Total 790 2726 1270 500 Balance 790 2726 1270 500 Meds/Results Medications: Active Medications Generic Name Dose Route Start Last Admin Trade Name Freq PRN Reason Stop Dose Admin Acetaminophen 650 mg 06/11/25 13:04 Acetaminophen 325 Mg Tablet PO Q4H PRN Mild Pain (1-3) or Fever Hydrocodone Bitart/Acetaminophen 1 tab 06/11/25 16:03 Hydrocodone/Acetaminophen (*Crx) 7.5-325 Mg Tablet PO Q6H PRN Pain 4-6 Albuterol 2.5 mg 06/11/25 16:02 Albuterol Sulfate Neb 2.5 Mg/3 Ml Inh INHALATION Q6HRT PRN Shortness Of Breath Or Wheezing Alprazolam 2 mg 06/11/25 16:03 Alprazolam (*Crx) 0.5 Mg Tablet PO HS PRN Anxiety Aspirin 81 mg 06/12/25 08:00 06/14/25 08:30 Aspirin 81 Mg Chewable Tablet PO 81 mg DAILY@0800 PARISA Administration Dextrose 12.5 gm 06/11/25 16:04 Dextrose 50% 25 Gm/50 Ml Syringe IV PUSH PRN PRN Hypoglycemia Protocol Enoxaparin Sodium 40 mg 06/11/25 21:00 06/13/25 20:28 Enoxaparin 40 Mg/0.4 Ml Syringe SUB-Q 40 mg HS PARISA Administration Glucagon 1 mg 06/11/25 16:04 Glucagon For Inj 1 Mg Vial IM PRN PRN Hypoglycemia Protocol Glucose 15 gm 06/11/25 16:04 Glucose Oral Gel 15 Gm Of Glucse In 37.5 Gm Tube PO PRN PRN Hypoglycemia Protocol Dextrose 1,000 mls @ 100 mls/hr 06/11/25 16:04 Dextrose 5% 1,000 Ml IVPB PRN PRN Hypoglycemia Protocol Insulin Aspart 3 - 6 units 06/13/25 08:00 06/14/25 08:32 Insulin Aspart (*Bkc) 100 Units/Ml SUB-Q Not Given TIDWM [facility] Protocol Lisinopril 10 mg 06/12/25 09:00 06/14/25 08:30 Lisinopril 10 Mg Tablet PO 10 mg DAILY PARISA Administration Perflutren Lipid Microsphere 0 ml 06/12/25 09:33 Perflutren Lipid Microspheres 1.5 Ml Vial Diluted To 10 Ml Total Volume IV PUSH 06/15/25 09:33 ONCE PRN adequate visualization Protocol Radiology Results: ITS Impressions Chest X-Ray 06/11/25 12:49 IMPRESSION: 1. No acute cardiopulmonary findings. Labs 06/12/25 03:39 06/12/25 03:39 Labs: Laboratory Results - last 24 hr 06/13/25 06/13/25 06/13/25 11:57 16:32 20:19 POC Capillary Glucose 163 H 128 H 197 H Hemoglobin A1c 06/14/25 06/14/25 04:34 07:44 POC Capillary Glucose 186 H Hemoglobin A1c 9.3 H ASA Classification/Sedation ASA Classification/Sedation ASA Class: I Emergent: No Risks: Risks, benefits and alternatives explained and patient/family accepted plan for sedation. Patient re-evaluated immediately prior to sedation.
--- NOTE | 2025-06-14 10:54 | WPDHPUPDATE1 ---
History and Physical Update Update Date/Time: 06/14/25 10:54 History and Physical has been reviewed, including an updated exam of the patient. There are NO changes in the patient's condition. Risks, benefits, and alternatives have been discussed and questions answered. Patient agrees to proceed with procedure.
--- NOTE | 2025-06-14 10:56 | P.PCNCC_ITS ---
Cardiac Cath Procedure Note Date of procedure:: 06/14/25 Performing physician:: Jordan Richards MD Indication:: Recurrent chest chest pain Brief clinical history:: This 70-year-old patient with history of diabetes which is newly diagnosed who presents to the hospital with chest pain. Underwent stress echo yesterday that was sub maximal. The stress test was negative but patient was having chest pain on the treadmill and this is why we decided to bring to define coronary anatomy. Procedure Procedure performed:: 1-Moderate sedation that started at and ended at using mg of Versed and mg fentanyl. The registered nurse was 2-Selective left and right coronary angiogram. 3-Left heart catheterization with measurement of LVEDP and measurement of gradient across aortic valve. 4-Right common femoral arterial angiogram. 5-Deployment of 6 Portuguese Angio-Seal. Sedation/Medication given:: Moderate sedation. Access site:: Right common femoral artery. Estimated blood loss:: 10cc Procedure note:: After informed consent patient was brought in to medical lab tech instructor with the was draped and prepped in usual manner. Moderate sedation was given and the right groin was infiltrated using 1% lidocaine. Five Portuguese sheath was obtained using micropuncture needle and the modified Seldinger technique. Selective left coronary angiogram was done using JL4 catheter with the tip of the catheter placed in the left main coronary artery. Selective right coronary angiogram was done using JR4 catheter with the tip of the catheter placed to the right coronary artery. After that 5 Portuguese pigtail catheter was advanced across the aortic valve into the left ventricle with measurement of LVEDP and measurement of gradient across aortic valve. Right common femoral arterial angiogram was done. Findings:: 1- left coronary artery is a large artery that divides into large LAD, large circumflex artery. Left main is free of disease 2- left anterior descending artery is a large artery that runs and wraps around the apex. Free of disease. Major diagonal branch proximally free of disease 3- leftcircumflex artery is a large artery and codominant and free of disease 4- right coronary artery is medium in caliber free of disease 5- LVEDP was 8 mm Hg a and no gradient across aortic valve. 6- opening arterial pressure was 101/67 and closing pressure was 105/73 7-LV angiogram shows no significant wall motion abnormalities. Normal ejection fraction. Ectatic ascending aorta. 7- right femoral artery angiogram shows no significant disease in the right common femoral artery. Conclusion:: No Cad Assessment and Plan Assessment and plan (1) Chest pain: Qualifiers: Chest pain type: unspecified Qualified Code(s): R07.9 - Chest pain, unspecified Code(s): R07.9 - Chest pain, unspecified Status: Acute Assessment and Plan: No CAD and catheterization. Continue medical management
--- NOTE | 2025-06-14 12:45 | PC.NURSE ---
This RN reviewed post cath instructions with pt. Pt verbalized understanding. This RN also instructed pt that post cath instructions would be on his d/c packet for him to review.
[2025-06-14] MEDS: SODIUM CHLORIDE 0.9% IV 1,000 ML 125 ML IV CONT (13:00)
--- NOTE | 2025-06-14 14:07 | P.DS_ITS ---
DS: Admitting Diagnosis Discharge Date 06/14/25 Admitting Diagnosis - chest pain - T2DM with hyperglycemia DS: Discharge Diagnosis Discharge Diagnosis (1) Chest pain: Qualifiers: Chest pain type: unspecified Qualified Code(s): R07.9 - Chest pain, unspecified Code(s): R07.9 - Chest pain, unspecified Status: Acute (2) Diabetes type 2: Qualifiers: Diabetes mellitus complication status: with hyperglycemia Diabetes mellitus intermodal owner operator truck driver insulin use: without intermodal owner operator truck driver use Qualified Code(s): E11.65 - Type 2 diabetes mellitus with hyperglycemia Code(s): E11.9 - Type 2 diabetes mellitus without complications Status: Acute (3) COPD (chronic obstructive pulmonary disease): Qualifiers: COPD type: unspecified COPD Qualified Code(s): J44.9 - Chronic obstructive pulmonary disease, unspecified Code(s): J44.9 - Chronic obstructive pulmonary disease, unspecified Status: Chronic (4) HTN (hypertension): Qualifiers: Hypertension type: essential hypertension Qualified Code(s): I10 - Essential (primary) hypertension Code(s): I10 - Essential (primary) hypertension Status: Chronic DS: Summary Hospital Course Reason for hospitalization: - chest pain - T2DM with hyperglycemia Hospital Course: The patient is a 70-year-old male admitted on 06/11/25 for evaluation of acute chest pain. Initial workup included serial EKGs and troponins, all of which were negative for acute ischemia. Chest X-ray showed no acute cardiopulmonary process. Cardiology was consulted, and the patient underwent a stress echocardiogram, which was submaximal and negative for ischemia, though it reproduced chest pain. Given ongoing exertional symptoms, a left heart catheterization was performed on 06/14/25, which demonstrated normal coronary arteries, normal left ventricular systolic function. Chest pain resolved and was felt to be musculoskeletal in origin as symptoms were reproducible with palpatio n on exam. During hospitalization, the patient was also noted to have poorly controlled type 2 diabetes mellitus with an A1c of 9.0 and hyperglycemia requiring sliding-scale insulin. He was started on metformin and glimepiride, received diabetes education, and glucose levels improved. Chronic conditions including hypertension and COPD remained stable; lisinopril was resumed and there was no COPD exacerbation. The patient remained hemodynamically stable and chest pain-free and was deemed stable for discharge home with instructions to follow up with his primary care provider for ongoing management of diabetes and chronic medical conditions. Time Spent with Patient Time attestation: Total time spent providing and/or coordinating discharge services: Exam Narrative: General: NAD, obese Eyes: EOMI ENT: neck supple Cardiovascular: Regular rate and rhythm Respiratory: Clear to auscultation, respirations even and unlabored on RA Gastrointestinal: Soft, non tender Genitourinary: no suprapubic tenderness Musculoskeletal: No edema Skin: warm, dry Neuro: Alert. Psych: Mood appropriate DS: Data Data Completed and Pending Completed studies during hospitalization: ITS Impressions Chest X-Ray 06/11/25 12:49 IMPRESSION: 1. No acute cardiopulmonary findings. Labs on day of discharge: Labs from last 24 hours 06/14/25 06/14/25 06/14/25 12:49 07:44 04:34 POC Capillary Glucose 193 H 186 H Hemoglobin A1c 9.3 H 06/13/25 06/13/25 20:19 16:32 POC Capillary Glucose 197 H 128 H Hemoglobin A1c Discharge Plan Discharge Attending physician on discharge: Lashonda Badillo Consulting providers: Marilou Cooper; Jed Ponce Discharging Clinician: Marilou Cooper Anticipated Discharge Date/Time: 06/14/25 14:00 Patient Disposition: Home Activity: other - see discharge instructions Diet: heart healthy and diabetic Discharge Instructions: [facility] [address] [place] [address] DISCHARGE INSTRUCTIONS - POST CARDIAC CATH Activity Restriction 1. No Driving for 24 hours 2. No lifting, pushing or pulling more than 10 LBS for 1 week 3. No strenuous activity or exercising for 1 week 4. Shower after 24 hours, do not soak in any water such as hot tubs or bath tubs Wound Care 1. Remove dressing 24 hours after your procedure prior to showering 2. Lather soap and water to puncture site and rinse then pat dry 3. You may apply a new band aid to the site and remove aft er 24 hours then leave open to air 4. Monitor daily for redness, drainage, mild swelling and fever Report IMMEDIATELY: CALL 911 1. If you experience any swelling or bleeding from puncture site. Hold firm pressure over the puncture site until help arrives 2. If you experience any new discomfort in you back, neck, jaw, stomach or arm. Any shortness of breath, nausea, vo miting, or cold sweats 3. If you experience any swelling, tenderness, or numbness in your leg or if your leg becomes cold or has color changes. Follow Up 1. Follow your doctors discharge instructions on resuming your medications. Some medications will need to be held after your procedure 2. Follow up with the office to schedule your next appointment with your doctor 3. Drink plenty of water following your procedure, avoid alcohol If you received a stent or a closure device keep your card with you such as in your wallet. Present your card to your doctor appointments to update your health care information. Your Diagnosis Your recent hemoglobin A1c (HbA1c) level was 9.3%, which indicates that your blood sugar has been higher than normal over the past 2-3 months. The goal is to lower this to less than 7% to reduce your risk of complications. Your Medications You are being discharged on two medications to help control your blood sugar: Metformin * Take this medication with meals to reduce stomach upset * Common starting dose is 500 mg twice daily or 850 mg once daily with food * Your doctor may gradually increase your dose over several weeks based on how well your blood sugar is controlled Glimepiride * Take this medication once daily with breakfast or your first meal of the day * Do not skip meals when taking this medication Important Side Effects to Watch For Metformin: * Stomach problems are common, especially when starting: diarrhea, nausea, gas, upset stomach * These usually improve over time as your body adjusts * If you experience severe vomiting, dehydration, or feel very ill, stop taking metformin and contact your doctor Glimepiride: * Low blood sugar (hypoglycemia)?is the most important side effect to watch for * Signs of low blood sugar include: shakiness, sweating, fast heartbeat, dizziness, hunger, headache, confusion, or irritability * If you experience these symptoms, check your blood sugar if possible and eat or drink 15 grams of fast-acting carbohydrates (such as 4 glucose tablets, 4 ounces of juice, or 1 tablespoon of sugar or honey) * Do not skip meals when taking glimepiride * Limit alcohol consumption as it can increase your risk of low blood sugar What You Need to Do Diet and Exercise: * Work on eating a balanced, healthy diet - ask your doctor for a referral to a dietitian * Aim for at least 150 minutes of moderate physical activity per week (such as brisk walking) * If you are overweight, losing even 5-10% of your body weight can significantly improve your blood sugar control Monitoring: * Your doctor may recommend checking your blood sugar at home * Keep track of your blood sugar readings to share with your doctor When to Stop Metformin Temporarily: * If you become severely ill, dehydrated, or are vomiting * Before certain medical procedures involving contrast dye (your doctor will advise you) Follow-Up Care You must follow up with your primary care doctor as scheduled.?At your follow-up visit, your doctor will: * Check your blood sugar control with another HbA1c test (usually in 3 months) * Obtain glucometer from pharmacy and check blood sugar twice daily and as needed for symptoms of low blood sugar. * Adjust your medications if needed * Screen for diabetes complications * Provide additional education and support When to Seek Medical Attention Call your doctor or seek medical care if you experience: * Severe or persistent low blood sugar symptoms * Severe nausea, vomiting, or diarrhea that prevents you from eating or drinking * Signs of very high blood sugar: extreme thirst, frequent urination, blurred vision, or feeling very tired * Any allergic reactions such as rash, itching, or difficulty breathing Additional Resources Ask your doctor about: * Diabetes self-management education programs * Meeting with a registered dietitian for nutrition counseling * Support groups for people with diabetes Managing diabetes is a lifelong commitment, but with proper medication, healthy lifestyle choices, and regular medical care, you can live a healthy life and prevent complications. *For any other questions please call the office at [phone]. Office hours are 8AM 4:30PM Friday through Friday. Patient Instructions: Antibiotic Form, Glimepiride (By mouth), Metformin (By mouth), Hypoglycemia in a Person with Diabetes (DC), Moderate Sedation (DC), Diabetes and Exercise (DC), Left Heart Catheterization (DC) Patient Language: French Stand Alone Forms: General Discharge Information Follow-up/Referrals: YG,GAMALIEL WILLS [Primary Care Provider] - Call for Appointment Referral Note: follow-up in 1 week Discharge Medications: New lisinopril 10 mg Tablet 10 mg PO DAILY 30 Days Qty: 30 0RF metformin 500 mg tablet 500 mg PO BIDWMEAL Qty: 60 0RF glimepiride 1 mg tablet 1 mg PO .daily with breakfast Qty: 30 0RF (DME) blood-glucose meter [OneTouch Verio Flex meter[place] [facility] [place] 1 0RF Rx Instructions: Starter Kit. May substitute to in-stock and/or covered by insurance meter. Use As Directed (DME) OneTouch Verio test strips Strip Qty: 1 0RF Rx Instructions: May substitute to in-stock and/or covered by insurance strips. Use As Directed Check blood sugar at breakfast and before bed and as needed for symptoms of hypoglycemia. Max 3 times daily. (DME) lancets [[employer] Reach[employer] Delica Plus Lancet] 30 gauge misc Qty: 1 0RF Rx Instructions: May substitute to in-stock and/or covered by insurance lancets. Use As Directed Continued albuterol sulfate [Ventolin HFA] 90 mcg/actuation HFA aerosol inhaler 2 puff INHALATION Q4-6H PRN (Reason: shortness of breath or wheezing) alprazolam 2 mg tablet 2 mg PO HS PRN (Reason: anxiety) Patient Comments: 1 tablet (2mg total) by mouth nightly as needed for anxiety hydrocodone-acetaminophen 7.5-325 mg tablet 1 tablet PO Q6H PRN (Reason: pain) Date of admission: 06/13/25 14:48 Primary Care Provider: ALEJANDROELMA Admitting Provider: Lashonda Badillo Attending physician on admission: aLshonda Badillo Condition: Stable
--- NOTE | 2025-06-14 19:06 | PC.NURSE ---
Pastor Ferrara made arrangements for pt and his spouse to stay at [facility] in [place] for one night. Care Coordination provided pt with a cab voucher to make it to the hotel and a cab voucher back so pt can sweet pickle maker his vehicle in the morning. Pt unable to drive this evening due to medications administered during cardiac cath.
--- NOTE | 2025-06-17 13:40 | PCCDE ---
06/17/25 attempted DM educator courtesy follow up call. Outgoing message stating I'm sorry, your call can't be completed....
== END 2025-06-14 19:05 | disposition home or self-care (01) | DRG 287 ==
LOC: ANHED 12:05 → ANHIMU 13:42
PROVIDERS: Internal Medicine Cardiovascular Disease; Nurse Practitioner Adult Health; Admitting Provider General Practice; Emergency Provider Emergency Medicine; PCP Nurse Practitioner Family; Visit Provider Physician Assistant
PROC: 4A023N7 Measurement of Cardiac Sampling and Pressure, Left Heart, Percutaneous Approach (ICD-10-PCS; CPT 93452; principal; 2025-06-14 09:30)
PROC: 4A023N7 Measurement of Cardiac Sampling and Pressure, Left Heart, Percutaneous Approach (ICD-10-PCS; 2025-06-14 09:30)
DX: R07.89 Other chest pain (principal); I10 Essential (primary) hypertension; E11.65 Type 2 diabetes mellitus with hyperglycemia; J44.9 Chronic obstructive pulmonary disease, unspecified; Z87.891 Personal history of nicotine dependence; Z91.199 Patient's noncompliance with other medical treatment and regimen due to unspecified reason; Z98.1 Arthrodesis status
CPT/HCPCS: 36415; 71046; 80048; 80053; 80061; 82948; 83036; 83690; 83880; 84484; 85025; 85610; 85730; 93005; 93351; 93458; 99285; A9270; C1760; C1887; C1894; G0269; G0378; J1644; J1650; J1815; J2003; J2250; J3010; J7030; J7040